=== PATIENT | female | born 1965 | race Two or more races ===

== ENCOUNTER 2017-06-06 17:41 | Inpatient (IN) | payer MEDICARE, MEDICAID ==
[2017-06-06] MEDS ORDERED: Sodium Chloride 0.9% 1,000 ML IV ONE ×2 (18:14→21:23)
--- NOTE | 2017-06-06 18:20 | ED Physician Chart ---
Chief Complaint/HPI - Patient Information Date Seen:: 06/06/17 Time Seen:: 18:00 Chief Complaint:: anemia History of Present Illness:: Blood drawn last night showed a hemoglobin of 6.5. Patient has a history of breast cancer diagnosed in 2011 with metastasis to the brain and bones. She last received radiation therapy 8 days ago. Patient had a right craniotomy 1 months ago to resect cerebral metastasis. Patient complains of diffuse myalgia/ arthralgia at present. Allergies:: Allergies Allergy/AdvReac Type Severity Reaction Status Date / Time No Known Allergies Allergy Verified 06/06/17 18:06 Vitals:: Vital Signs - 8 hr 06/06/17 17:59 Temp 101.1 F HR 132 RR 16 BP 152/94 O2 Sat % 93 Historian:: Patient Review:: Nurse's Note Reviewed Review of Systems - Review of Systems General/Constitutional: No fever, No chills Skin: No skin lesions Head: No headache Eyes: No loss of vision ENT: No earache Neck: No neck pain Cardio Vascular: No chest pain, No palpitations Pulmonary: No SOB GI: No nausea, No vomiting G/U: No dysuria Musculoskeletal: Bone or joint pain Endocrine: No polyuria Psychiatric: No prior psych history Hematopoietic: No bruising Allergic/Immuno: No urticaria Neurological: No syncope Past Medical History - Past Medical History Past Medical History: Other (breast cancer with metastasis) Family History: None Social History: Non Smoker, No Alcohol Surgical History: other (right hip replacement; left knee; left humerus) Psychiatricy History: None Medication: Reviewed Family Medical History - Family Member Mother History Unknown: Yes Physical Exam - Physical Examination Other Gen/Cons comments:: Patient is chronically ill-appearing; she is moaning secondary to pain. Other Head comments:: Large right craniotomy scar Eyes: Lids, conjuctiva normal, PERRL Other Skin comments:: Ecchymosis below both eyes ENMT: External ears, nose nl, Lips, teeth, gums nl, Oropharynx nl, Tonsils nl Neck: No nuchal rigidity Respiratory: Nl effort/Exclusion Cardio Vascular: RRR GI: No tenderness/rebounding/guarding, No organomegaly, No hernia, Normal BS's : No CVA tenderness Other Extremities comments:: 2 out of 4 pretibial pitting edema Neuro/Psych: No focal deficits Misc: No paraspinal tenderness Labs/Radiology/EKG Results - Lab Results Results: Laboratory Results - last 24 hr 06/06/17 06/06/17 06/06/17 18:23 18:23 18:23 WBC 4.9 RBC 2.37 L Hgb 7.4 L* Hct 22.0 L* MCV 92.6 MCH 31.0 MCHC Differential 33.5 RDW 20.3 H Plt Count 198 MPV 7.9 Band Neutrophils % 5 Neutrophils (Manual) 68 Lymphocytes 18 L Monocytes 8 Basophils 1 Nucleated RBCs 1.0 H Platelet Estimate ADEQUATE Anisocytosis 1+ RBC Morph Micro Appear ABNORMAL PT 10.6 INR 1.02 PTT (Actin FS) 24.7 L Sodium 131 L Potassium 3.5 Chloride 102 Carbon Dioxide 23.2 Anion Gap 9.3 BUN 9 Creatinine 0.2 L Est GFR ( Amer) > 60.0 Est GFR (Non-Af Amer) > 60.0 BUN/Creatinine Ratio 45.0 Glucose 101 Calcium 8.5 L Urine Source Urine Color Urine Clarity Urine pH Ur Specific [place] Urine Protein Urine Glucose (UA) Urine Ketones Urine Blood Urine Nitrate Urine Bilirubin Urine Urobilinogen Ur Leukocyte Esterase Urine RBC Urine WBC Ur Epithelial Cells Amorphous Sediment Urine Bacteria Urine Mucus 06/06/17 20:20 WBC RBC Hgb Hct MCV MCH MCHC Differential RDW Plt Count MPV Band Neutrophils % Neutrophils (Manual) Lymphocytes Monocytes Basophils Nucleated RBCs Platelet Estimate Anisocytosis RBC Morph Micro Appear PT INR PTT (Actin FS) Sodium Potassium Chloride Carbon Dioxide Anion Gap BUN Creatinine Est GFR ( Amer) Est GFR (Non-Af Amer) BUN/Creatinine Ratio Glucose Calcium Urine Source [place] Urine Color YELLOW Urine Clarity TURBID H Urine pH 7.0 Ur Specific [place] 1.015 Urine Protein TRACE Urine Glucose (UA) NEGATIVE Urine Ketones NEGATIVE Urine Blood SMALL H Urine Nitrate POSITIVE H Urine Bilirubin NEGATIVE Urine Urobilinogen >=8.0 H Ur Leukocyte Esterase TRACE H Urine RBC 5-10 H Urine WBC 6-10 H Ur Epithelial Cells MANY Amorphous Sediment MANY URATES Urine Bacteria MANY Urine Mucus FEW - Radiology Results Results: Chest x-ray was normal Assessment - Assessment General Assessment: At 2125 patient had no abdominal tenderness ED Septic Shock - . Is Septic Shock (SBP<90, OR Lactate>4 mmol\L) present?: No - <6hrs of presentation: Vital Signs: Vital Signs - 8 hr 06/06/17 17:59 Temp 101.1 F HR 132 RR 16 BP 152/94 O2 Sat % 93 Reassessment (Disposition) - Reassessment Reassessment Condition:: Unchanged - Diagnosis Diagnosis:: Metastatic breast carcinoma; sepsis; status post craniotomy for cerebral metastasis - Patient Disposition Admitted to:: Telemetry Spoke to:: Broderick Luna Admitting Medical Physician:: Broderick Luna Condition at Disposition:: Stable, Unchanged
[2017-06-06] MEDS ORDERED: HYDROmorphone 2 mg/mL 1mL Vial IVP STA (18:29)
[2017-06-06] MEDS ORDERED: HYDROmorphone 2 mg/mL 1mL Vial ONE (18:31)
[2017-06-06 18:39] LABS: MEAN CELL VOLUME 92.6 fl (81-100); MEAN CORPUSCULAR HGB CONC 33.5 pg (28.0-36.0); MEAN PLATELET VOLUME 7.9 fl; PLATELET COUNT 198 Th/cmm (150-400); RED BLOOD COUNT 2.37 Mil/cmm (3.80-5.10); RED CELL DISTRIBUTION WIDTH 20.3 % (11.5-20.0); WHITE BLOOD COUNT 4.9 Th/cmm (4.8-10.8)
[2017-06-06 18:41] LABS: HEMOGLOBIN 7.4 gm/dL (11.7-15.5)
[2017-06-06 18:48] LABS: ANION GAP 9.3 (7.0-16.0); BUN - UREA NITROGEN 9 mg/dL (7-25); CALCIUM SERUM 8.5 mg/dL (8.6-10.3); CARBON DIOXIDE 23.2 mEq/L (21.0-31.0); CHLORIDE 102 mEq/L (98-107); GLUCOSE 101 mg/dL (70-105); INR 1.02 (0.5-1.4); POTASSIUM SERUM 3.5 mEq/L (3.5-5.1); PROTHROMBIN TIME (TEST) 10.6 SECONDS (9.5-11.5); SODIUM SERUM 131 mEq/L (136-145)
[2017-06-06 19:08] LABS: CREATININE - SERUM 0.2 mg/dL (0.6-1.2)
[2017-06-06 19:15] LABS: ANISOCYTOSIS 1+; BAND NEUTROPHILE 5 % (0-10); BASOPHIL 1 % (0-3); NEUTROPHILS 68 % (40-80); PLATELET ESTIMATE ADEQUATE (NORMAL); TOTAL CELLS COUNTED 100
[2017-06-06] MEDS ORDERED: cefTRIAXone 1 GM in Sodium Chloride 0.9% 50 ML IV ONE (19:58)
[2017-06-06 20:36] LABS: URINE COLOR YELLOW
[2017-06-06 20:37] LABS: URINE BILIRUBIN NEGATIVE (NEGATIVE); URINE BLOOD SMALL (NEGATIVE); URINE GLUCOSE (UA) NEGATIVE (NEGATIVE); URINE KETONE NEGATIVE (NEGATIVE); URINE PROTEIN TRACE mg/dL (NEGATIVE); URINE UROBILINOGEN >=8.0 E.U./dL (0.2 - 1.0)
[2017-06-06 20:45] LABS: URINE AMORPHOUS SEDIMENT MANY URATES (NONE SEEN); URINE BACTERIA MANY /hpf (NONE SEEN); URINE EPITHELIAL CELLS MANY /lpf (FEW)
[2017-06-06] MEDS ORDERED: Piperacillin Sodium/Tazobact 3.375 gm Vial IV ONE (21:15)
[2017-06-06] MEDS ORDERED: Morphine Sulfate 2 mg/mL 1mL Syr IVP PRN (21:51)
[2017-06-06] MEDS: HYDROmorphone 2 mg/mL 1mL Vial IVP PRN (22:43)
[2017-06-06] MEDS ORDERED: Morphine Sulfate 2 mg/mL 1mL Syr ONE (23:47)
[2017-06-06] MEDS: D5-0.9%NS 1,000 ML IV SCH (23:50)
[2017-06-07] MEDS: Morphine Sulfate 2 mg/mL 1mL Syr IVP PRN ×5 (00:14→21:08)
[2017-06-07] MEDS: HYDROmorphone 2 mg/mL 1mL Vial IVP PRN ×5 (01:12→23:19)
[2017-06-07 08:11] LABS: MEAN CELL VOLUME 94.5 fl (81-100); MEAN CORPUSCULAR HGB CONC 32.8 pg (28.0-36.0); MEAN PLATELET VOLUME 7.7 fl; PLATELET COUNT 186 Th/cmm (150-400); RED BLOOD COUNT 2.18 Mil/cmm (3.80-5.10); WHITE BLOOD COUNT 4.2 Th/cmm (4.8-10.8)
[2017-06-07 08:15] LABS: ALKALINE PHOSPHATASE 211 U/L (34-104); BILIRUBIN,TOTAL 0.6 mg/dL (0.3-1.0); BUN - UREA NITROGEN 5 mg/dL (7-25); CALCIUM SERUM 8.2 mg/dL (8.6-10.3); CARBON DIOXIDE 20.1 mEq/L (21.0-31.0); CHLORIDE 108 mEq/L (98-107); GLUCOSE 98 mg/dL (70-105); MAGNESIUM 1.8 mg/dL (1.9-2.7); POTASSIUM SERUM 3.1 mEq/L (3.5-5.1); SGOT 179 U/L (13-39); SGPT/ALT 224 U/L (7-52); SODIUM SERUM 136 mEq/L (136-145)
[2017-06-07] MEDS: Pantoprazole 40 mg EC Tab PO SCH (08:39)
[2017-06-07] MEDS: Multivitamin w/ Minerals Tab PO SCH (08:40)
[2017-06-07] MEDS: oxyCODONE 5 mg IR Tab PO SCH ×3 (08:41→22:00)
[2017-06-07] MEDS: Lidocaine 5% Patch TD SCH (08:42)
[2017-06-07 08:49] LABS: HEMATOCRIT 20.6 % (35.0-45.0); HEMOGLOBIN 6.8 gm/dL (11.7-15.5)
[2017-06-07 08:59] LABS: CREATININE - SERUM 0.2 mg/dL (0.6-1.2)
[2017-06-07] MEDS ORDERED: Pneumococcal Vaccine 0.5 mL Vial IM ONE (09:00)
[2017-06-07 09:13] LABS: BAND NEUTROPHILE 3 % (0-10); NEUTROPHILS 71 % (40-80); TOTAL CELLS COUNTED 100
[2017-06-07 09:14] LABS: ANISOCYTOSIS 1+; PLATELET ESTIMATE ADEQUATE (NORMAL)
--- NOTE | 2017-06-07 09:27 | Diagnostic Imaging Report ---
CHEST X-RAY: AP view INDICATION: Fever COMPARISON: None FINDINGS: There are multiple bilateral rib fractures age-indeterminate sella which may be chronic. There is generalized abnormal density of the bones. Suboptimal lung volume are seen with no focal consolidation or pleural effusions. Heart size cannot be well assessed but is probably at the upper limits of normal in size. Postsurgical changes right axillary region are noted. IMPRESSION: Suboptimal lung volumes with no focal consolidation identified. Generalized abnormal density of the bones. Metastatic disease cannot be excluded. Please correlate with patient's clinical findings. If indicated CT or nuclear medicine bone scan may be obtained for further assessment. Multiple bilateral rib fractures some of which may be subacute and some of which may be chronic. Please correlate with clinical findings is normal exams. No evidence of pneumothorax. The final results were administered to the referring team on 06/07/2017.
[2017-06-07 10:19] LABS: TSH 0.64 uIU/ml (0.34-5.60)
[2017-06-07] MEDS ORDERED: Potassium Chloride 20 mEq ER Tab PO ONE (13:18)
[2017-06-07] MEDS ORDERED: Mag Sulfate 2gm/50mL Premix 2 GM/50 ML BAG IV ONE (13:18)
--- NOTE | 2017-06-07 14:56 | Consultation ---
Consult Note - Consult Note Service Date: 06/07/17 Referring Physician: Broderick Luna Consult Note: PHYSICIAN Consultation Note: Date of Admission: 06/06/17 Purpose of Consultation: breast cancer Chief Complaint: History of Present Illness: Patient SUSANNAH BARROW was admitted to [facility] Telemetry with FEVER,UTI, METASTATIC BREAST CA.was diagnosed 2011 and had lest mastectomy and chemotherapy. was found to have metastatic disease to bones and had left hip replacement and right knee and ortho surgery to left elbow. Diagnosed with brain met and had resection and xrt. Admitted for sever weakness and low hgb. Past Medical History: BREAST CA LEFT HIP REPLACEMENT RIGHT KNEE REPLACEMENT Allergies Allergy/AdvReac Type Severity Reaction Status Date / Time No Known Allergies Allergy Verified 06/06/17 18:06 Vital Signs Temp 99.1 F 06/07/17 12:05 Pulse 129 06/07/17 12:05 Resp 19 06/07/17 12:05 BP 135/64 06/07/17 12:05 Pulse Ox 96 06/07/17 12:05 Intake & Output 06/06/17 06/07/17 06/07/17 18:59 06:59 18:59 Intake Total 350 Balance 350 Weight (lbs) 113.58 kg Intake: Intake, IV Amount 350 Piperacillin Sodium/ 100 Tazobact 4.5 gm In Sodium Chloride 0.9% 100 ml @ 100 mls/hr IV Q8HR MARIA ESTHER Rx #:[id number] Vancomycin HCl 1 gm In 250 Sodium Chloride 0.9% 250 ml @ 166.667 mls/hr IV Q24H MARIA ESTHER Rx#:[id number] Other: # Voids 2 # Bowel Movements 2 Stool Characteristics Formed Laboratory Results - last 24 hr 06/07/17 06/07/17 06/07/17 07:15 07:15 07:15 WBC 4.2 L RBC 2.18 L Hgb 6.8 L* Hct 20.6 L* MCV 94.5 MCH 31.0 MCHC Differential 32.8 RDW 20.0 Plt Count 186 MPV 7.7 Band Neutrophils % 3 Neutrophils (Manual) 71 Lymphocytes 17 L Monocytes 9 Platelet Estimate ADEQUATE Anisocytosis 1+ Sodium 136 Potassium 3.1 L Chloride 108 H Carbon Dioxide 20.1 L Anion Gap 11.0 BUN 5 L Creatinine 0.2 L Est GFR ( Amer) > 60.0 Est GFR (Non-Af Amer) > 60.0 BUN/Creatinine Ratio 25.0 Glucose 98 Calcium 8.2 L Magnesium 1.8 L Total Bilirubin 0.6 AST 179 H ALT 224 H Alkaline Phosphatase 211 H Ammonia 78 H B-Natriuretic Peptide Total Protein 5.6 L Albumin 2.8 L Globulin 2.8 Albumin/Globulin Ratio 1.0 TSH 0.64 Blood Type Antibody Screen Crossmatch 06/07/17 06/07/17 07:15 10:25 WBC RBC Hgb Hct MCV MCH MCHC Differential RDW Plt Count MPV Band Neutrophils % Neutrophils (Manual) Lymphocytes Monocytes Platelet Estimate Anisocytosis Sodium Potassium Chloride Carbon Dioxide Anion Gap BUN Creatinine Est GFR ( Amer) Est GFR (Non-Af Amer) BUN/Creatinine Ratio Glucose Calcium Magnesium Total Bilirubin AST ALT Alkaline Phosphatase Ammonia B-Natriuretic Peptide 11.1 Total Protein Albumin Globulin Albumin/Globulin Ratio TSH Blood Type AB POSITIVE Antibody Screen NEGATIVE Crossmatch See Detail Home Medication Medication Instructions Recorded Type Ascorbic Acid [Vitamin C] 500 mg PO DAILY 06/06/17 History Baclofen [Lioresal*] 10 mg PO TID 06/06/17 History Bisacodyl [Dulcolax 5 Mg Ec Tab] 10 mg PO DAILY 06/06/17 History Cholecalciferol (Vit D3) [Vitamin 1,000 iu PO DAILY 06/06/17 History D3] Dexamethasone 2 mg PO BID 06/06/17 History Levetiracetam [Keppra] 1,000 mg PO BID 06/06/17 History Lidocaine 5% Patch [Lidoderm 5% 1 patch TP BID 06/06/17 History Patch] Memantine [Namenda] 5 mg PO DAILY 06/06/17 History Memantine [Namenda] 10 mg PO DAILY 06/06/17 History Multivitamin-Min/Iron/FA/Vit K 1 each PO DAILY 06/06/17 History [Multi-Day Plus Minerals Tablet] Oxycodone HCl [Oxycontin] 20 mg PO TID 06/06/17 History Pantoprazole [Protonix] 40 mg PO QAM 06/06/17 History Zinc Sulfate 220 mg PO DAILY 06/06/17 History Current Medications Generic Name Dose Route Start Last Admin Trade Name Freq PRN Reason Stop Dose Admin Acetaminophen 650 mg 06/06/17 21:51 Tylenol PO 08/05/17 21:50 Q4H PRN Pain Or Fever above 101 Albuterol Sulfate 2.5 mg 06/06/17 21:51 Albuterol 2.5mg/3ml Neb Ud HHN 08/05/17 21:50 Q2HRT PRN Shortness of Breath or Wheeze Ascorbic Acid 500 mg 06/07/17 09:00 06/07/17 08:40 Vitamin C PO 08/06/17 08:59 500 mg DAILY MARIA ESTHER Administration Baclofen 10 mg 06/07/17 09:00 06/07/17 13:54 Lioresal PO 08/06/17 08:59 10 mg TID MARIA ESTHER Administration Bisacodyl 10 mg 06/07/17 09:00 06/07/17 08:39 Dulcolax 5 Mg Ec Tab PO 08/06/17 08:59 10 mg DAILY MARIA ESTHER Administration Cholecalciferol 1,000 iu 06/07/17 09:00 06/07/17 08:39 Vitamin D3 PO 08/06/17 08:59 1,000 iu DAILY MARIA ESTHER Administration Dexamethasone 2 mg 06/07/17 09:00 06/07/17 08:40 Decadron PO 08/06/17 08:59 2 mg BID MARIA ESTHER Administration Enoxaparin Sodium 40 mg 06/08/17 09:00 Lovenox SUBQ 08/07/17 08:59 DAILY MARIA ESTHER Hydromorphone HCl 2 mg 06/06/17 22:36 06/07/17 09:46 Dilaudid IVP 08/05/17 22:35 2 mg Q4HR PRN Administration Pain (Severe) Dextrose/Sodium Chloride 1,000 mls @ 100 mls/hr 06/06/17 22:00 06/06/17 23:50 D5-0.9%Ns IV 08/05/17 21:59 100 mls/hr .Q10H MARIA ESTHER Administration Piperacillin Sod/Tazobactam 100 mls @ 100 mls/hr 06/07/17 05:00 06/07/17 12: 34 Sod 4.5 gm/ Sodium Chloride IV 08/06/17 04:59 100 mls/hr Q8HR MARIA ESTHER Administration Magnesium Sulfate 2 gm in 50 mls @ 25 mls/hr 06/07/17 13:18 Magnesium Sulfate Premix IV 06/07/17 15:17 X1 ONE Vancomycin HCl 1 gm/ Sodium 250 mls @ 165 mls/hr 06/07/17 15:00 Chloride IV 08/06/17 14:59 Q8H MARIA ESTHER Ipratropium [place] 0.5 mg 06/06/17 21:51 Atrovent Neb 0.5mg/2.5ml IH 08/05/17 21:50 Q2HRT PRN Shortness of Breath or Wheeze Levetiracetam 1,000 mg 06/07/17 09:00 06/07/17 08:39 Keppra PO 08/06/17 08:59 1,000 mg BID MARIA ESTHER Administration Lidocaine 1 patch 06/07/17 09:00 06/07/17 08:42 Lidoderm 5% Patch TD 08/06/17 08:59 1 patch DAILY MARIA ESTHER Administration Memantine 10 mg 06/07/17 09:00 06/07/17 08:39 Namenda PO 08/06/17 08:59 10 mg DAILY MARIA ESTHER Administration Memantine 5 mg 06/07/17 17:00 Namenda PO 08/06/17 16:59 1700 MARIA ESTHER Miscellaneous 1 ea 06/07/17 14:04 Vancomycin Iv Per Pharmacy 08/06/17 14:03 PRN PRN DOSING AND MONITORING Morphine Sulfate 2 mg 06/06/17 23:22 06/07/17 11:23 Morphine IVP 08/05/17 21:50 2 mg Q4H PRN Administration Pain (Moderate) Ondansetron HCl 4 mg 06/06/17 21:51 Zofran IV 08/05/17 21:50 Q8H PRN Nausea / Vomiting Oxycodone HCl 20 mg 06/07/17 09:00 06/07/17 13:54 Oxycodone Ir PO 08/06/17 08:59 20 mg TID MARIA ESTHER Administration Pantoprazole Sodium 40 mg 06/07/17 09:00 06/07/17 08:39 Protonix PO 08/06/17 08:59 40 mg QAM MARIA ESTHER Administration Zinc Sulfate 220 mg 06/07/17 09:00 06/07/17 10:15 Zinc Sulfate PO 08/06/17 08:59 220 mg DAILY MARIA ESTHER Administration Zolpidem Tartrate 10 mg 06/06/17 21:51 Ambien PO 08/05/17 21:50 HS PRN Insomnia Review of Systems: A 12 point ROS was reviewed with the pertinent positive and negatives noted in the HPI. Social History Smoking Status Never smoker Drug Use No Alcohol Use No Family Medical History Family Medical History Start: 06/06/17 22: 34 Freq: ONCE Status: Active Document 06/06/17 23:00 RSANDRES (Rec: 06/07/17 03:54 RSANDRES [id number] ) Family Medical History Mother History Unknown Yes Physical Exam: General: CHRONICALLY ILL HEENT: PALLOR Cardio: Respiratory: Abdominal: Genital/Urinary: Extremities: LEFT ARM EDEMA Neurological: Assessment: BED RIDDEN. POOR FUNCTIONAL STATUS METASTATIC BREAST CANCER OBESITY SEVER ANEMIA Plan: DVT PROPH TX PRN ANEMIA W/U PALLIATIVE CARE Signed, Mu Hall [id number]
--- NOTE | 2017-06-07 16:05 | History & Physical ---
ADMIT DATE: 06/07/2017 CHIEF COMPLAINT: Fever and low red blood cell. HISTORY OF PRESENT ILLNESS: This is a 51-year-old unfortunate [place] female with a history of breast cancer with bone mets, status post radiation therapy, which she just finished recently. The patient was diagnosed with UTI, on Levaquin, but has continued to spike. The patient with multiple bone mets with multiple bone surgery. The patient's hemoglobin was 6.8 at the nursing facility. The patient admitted for further management. PAST MEDICAL HISTORY: As mentioned in history present illness. PAST SURGICAL HISTORY: Status post left upper extremity surgeries, status post left hip surgery, craniotomy, right hip surgery. ALLERGIES: No known drug allergies. MEDICATIONS: Vitamin C, baclofen, Dulcolax, dexamethasone, Keppra, lidocaine patch, Namenda, multivitamin, OxyContin, pantoprazole. FAMILY HISTORY: Noncontributory. SOCIAL HISTORY: Nonsmoker, nondrinker, no intravenous drug use. The patient used to work for [employer]. , ____ children. REVIEW OF SYSTEMS: GENERAL: Complains not feeling well. HEENT: No blurred vision or pain. LUNGS: ____ COPD or asthma. HEART: The patient denies hypertension or coronary artery disease. ABDOMEN: The patient with some nausea, no vomiting. No ____ history of reflux. NEUROLOGIC: Status post craniotomy, no seizure, on ____ prophylactic. PHYSICAL EXAMINATION: VITAL SIGNS: Blood pressure 135/64, respirations 19, pulse 96-129, temperature 99.1. GENERAL: Elderly female appears ____. HEENT: Positive craniotomy, facial edema. NECK: Supple. No mass. LUNGS: Equal breath sounds, few rhonchi. HEART: Regular rate and rhythm without appreciable murmurs. ABDOMEN: Soft, ____, globular. Positive bowel sounds. EXTREMITIES: Positive excoriations. NEUROLOGIC: Limited, moving all 4 extremities. Gait not seen. LABORATORY DATA: ____ findings. WBC 4.3, hemoglobin 6.8, platelets 186. Sodium 136, potassium 3.1, BUN ____ and creatinine 0.2. Blood sugar was 98. Magnesium 1.8, AST and ALT 179 and 224, ammonia 78. UA 10 wbc, many bacteria. ASSESSMENT AND PLAN: Urinary tract infection, fever, sepsis, severe anemia, hypokalemia, hypomagnesemia, obesity, elevated liver function tests, low albumin, breast carcinoma with bone mets, possible liver mets. We will continue the patient on IV antibiotic. The patient failed outpatient p.o. antibiotic on Levaquin. The patient currently ____ vancomycin. We will follow the patient's blood culture. We will continue pain medication. We will transfuse with 1 unit and monitor. We will continue with current care. We will refer the patient to oncologist. We will continue to follow. JOB# [id number]
[2017-06-07] MEDS: D5-0.9%NS 1,000 ML IV SCH ×2 (19:04→19:05)
[2017-06-08] MEDS: Morphine Sulfate 2 mg/mL 1mL Syr IVP PRN ×4 (02:20→20:25)
[2017-06-08] MEDS: HYDROmorphone 2 mg/mL 1mL Vial IVP PRN ×4 (06:08→23:05)
[2017-06-08] MEDS: oxyCODONE 5 mg IR Tab PO SCH ×3 (09:00→21:49)
[2017-06-08] MEDS: Multivitamin w/ Minerals Tab PO SCH (09:11)
[2017-06-08] MEDS: Pantoprazole 40 mg EC Tab PO SCH (09:14)
[2017-06-08] MEDS: Enoxaparin 40 mg/0.4 mL 0.4mL Syr SUBQ SCH (09:20)
[2017-06-08 11:49] LABS: ALKALINE PHOSPHATASE 164 U/L (34-104); BILIRUBIN,TOTAL 0.4 mg/dL (0.3-1.0); BUN - UREA NITROGEN 4 mg/dL (7-25); CALCIUM SERUM 7.9 mg/dL (8.6-10.3); CARBON DIOXIDE 19.5 mEq/L (21.0-31.0); CHLORIDE 109 mEq/L (98-107); CREATININE - SERUM 0.2 mg/dL (0.6-1.2); GLUCOSE 134 mg/dL (70-105); MAGNESIUM 1.9 mg/dL (1.9-2.7); POTASSIUM SERUM 3.5 mEq/L (3.5-5.1); SGOT 86 U/L (13-39); SGPT/ALT 121 U/L (7-52); SODIUM SERUM 135 mEq/L (136-145)
[2017-06-08 11:54] LABS: VANCOMYCIN TROUGH 9.3 ug/mL (10-20)
[2017-06-08 12:01] LABS: MEAN CELL VOLUME 90.6 fl (81-100); MEAN CORPUSCULAR HEMOGLOBIN 30.7 pg (27.0-31.0); MEAN CORPUSCULAR HGB CONC 33.9 pg (28.0-36.0); MEAN PLATELET VOLUME 7.2 fl; PLATELET COUNT 172 Th/cmm (150-400); RED BLOOD COUNT 2.46 Mil/cmm (3.80-5.10); RED CELL DISTRIBUTION WIDTH 19.1 % (11.5-20.0)
[2017-06-08 12:09] LABS: HEMOGLOBIN 7.6 gm/dL (11.7-15.5)
[2017-06-08 12:10] LABS: HEMATOCRIT 22.3 % (35.0-45.0)
[2017-06-08 12:11] LABS: FOLIC ACID >20.0 ng/mL (>3.0)
[2017-06-08 12:34] LABS: ANISOCYTOSIS 1+; BAND NEUTROPHILE 4 % (0-10); BASOPHIL 1 % (0-3); NEUTROPHILS 71 % (40-80); PLATELET ESTIMATE ADEQUATE (NORMAL); TOTAL CELLS COUNTED 100
--- NOTE | 2017-06-08 15:22 | Internal Medicine Prog Note ---
Internal Medicine Subjective - Subjective Patient seen and examined:: with staff, chart reviewed Patient is:: awake, verbal, interactive, in bed, talking Patient Complaints of:: congestion, other (feels feverish) Per staff patient has:: no adverse event, poor appetite, poor oral intake, choking, tolerating meds Internal Medicine Objective - Results Result Diagrams: 06/08/17 11:56 06/08/17 11:30 Recent Labs: Laboratory Last Values WBC 4.0 Th/cmm (4.8-10.8) L 06/08/17 11:56 RBC 2.46 Mil/cmm (3.80-5.10) L 06/08/17 11:56 Hgb 7.6 gm/dL (11.7-15.5) L* 06/08/17 11:56 Hct 22.3 % (35.0-45.0) L* 06/08/17 11:56 MCV 90.6 fl (81-100) 06/08/17 11:56 MCH 30.7 pg (27.0-31.0) 06/08/17 11:56 MCHC Differential 33.9 pg (28.0-36.0) 06/08/17 11:56 RDW 19.1 % (11.5-20.0) 06/08/17 11:56 Plt Count 172 Th/cmm (150-400) 06/08/17 11:56 MPV 7.2 fl 06/08/17 11:56 Band Neutrophils % 4 % (0-10) 06/08/17 11:56 Neutrophils (Manual) 71 % (40-80) 06/08/17 11:56 Lymphocytes 18 % (20-50) L 06/08/17 11:56 Monocytes 6 % (2-10) 06/08/17 11:56 Basophils 1 % (0-3) 06/08/17 11:56 Nucleated RBCs 1.0 % (0-0) H 06/06/17 18:23 Platelet Estimate ADEQUATE (NORMAL) 06/08/17 11:56 Anisocytosis 1+ 06/08/17 11:56 RBC Morph Micro Appear ABNORMAL (NORMAL) 06/08/17 11:56 PT 10.6 SECONDS (9.5-11.5) 06/06/17 18:23 INR 1.02 (0.5-1.4) 06/06/17 18:23 PTT (Actin FS) 24.7 SECONDS (26.0-38.0) L 06/06/17 18:23 Sodium 135 mEq/L (136-145) L 06/08/17 11:30 Potassium 3.5 mEq/L (3.5-5.1) 06/08/17 11:30 Chloride 109 mEq/L (98-107) H 06/08/17 11:30 Carbon Dioxide 19.5 mEq/L (21.0-31.0) L 06/08/17 11:30 Anion Gap 10.0 (7.0-16.0) 06/08/17 11:30 BUN 4 mg/dL (7-25) L 06/08/17 11:30 Creatinine 0.2 mg/dL (0.6-1.2) L 06/08/17 11:30 Est GFR ( Amer) > 60.0 ml/min (>90) 06/08/17 11:30 Est GFR (Non-Af Amer) > 60.0 ml/min 06/08/17 11:30 BUN/Creatinine Ratio 20.0 06/08/17 11:30 Glucose 134 mg/dL (70-105) H 06/08/17 11:30 Calcium 7.9 mg/dL (8.6-10.3) L 06/08/17 11:30 Magnesium 1.9 mg/dL (1.9-2.7) 06/08/17 11:30 Total Bilirubin 0.4 mg/dL (0.3-1.0) 06/08/17 11:30 AST 86 U/L (13-39) H 06/08/17 11:30 ALT 121 U/L (7-52) H 06/08/17 11:30 Alkaline Phosphatase 164 U/L (34-104) H 06/08/17 11:30 Ammonia 78 umol/L (16-53) H 06/07/17 07:15 B-Natriuretic Peptide 11.1 pg/mL (5.0-100.0) 06/07/17 07:15 Total Protein 4.8 gm/dL (6.0-8.3) L 06/08/17 11:30 Albumin 2.4 gm/dL (3.7-5.3) L 06/08/17 11:30 Globulin 2.4 gm/dL 06/08/17 11:30 Albumin/Globulin Ratio 1.0 (1.0-1.8) 06/08/17 11:30 Vitamin B12 873 pg/mL (211-946) 06/07/17 07:15 Folic Acid >20.0 ng/mL (>3.0) 06/07/17 07:15 TSH 0.64 uIU/ml (0.34-5.60) 06/07/17 07:15 Urine Source [place] 06/06/17 20:20 Urine Color YELLOW 06/06/17 20:20 Urine Clarity TURBID (CLEAR) H 06/06/17 20:20 Urine pH 7.0 06/06/17 20:20 Ur Specific [place] 1.015 (1.005-1.030) 06/06/17 20:20 Urine Protein TRACE mg/dL (NEGATIVE) 06/06/17 20:20 Urine Glucose (UA) NEGATIVE mg/dL (NEGATIVE) 06/06/17 20:20 Urine Ketones NEGATIVE mg/dL (NEGATIVE) 06/06/17 20:20 Urine Blood SMALL (NEGATIVE) H 06/06/17 20:20 Urine Nitrate POSITIVE (NEGATIVE) H 06/06/17 20:20 Urine Bilirubin NEGATIVE (NEGATIVE) 06/06/17 20:20 Urine Urobilinogen >=8.0 E.U./dL (0.2 - 1.0) H 06/06/17 20:20 Ur Leukocyte Esterase TRACE (NEGATIVE) H 06/06/17 20:20 Urine RBC 5-10 /hpf (0-5) H 06/06/17 20:20 Urine WBC 6-10 /hpf (0-5) H 06/06/17 20:20 Ur Epithelial Cells MANY /lpf (FEW) 06/06/17 20:20 Amorphous Sediment MANY URATES (NONE SEEN) 06/06/17 20:20 Urine Bacteria MANY /hpf (NONE SEEN) 06/06/17 20:20 Urine Mucus FEW /lpf (FEW) 06/06/17 20:20 Vancomycin Trough 9.3 ug/mL (10-20) L 06/08/17 11:30 Blood Type AB POSITIVE 06/07/17 10:25 Antibody Screen NEGATIVE 06/07/17 10:25 Crossmatch See Detail 06/07/17 10:25 - Physical Exam Vitals and I&O: Vital Signs Temp 98.4 F 06/08/17 12:00 Pulse 107 06/08/17 12:00 Resp 20 06/08/17 12:00 BP 123/68 06/08/17 12:00 Pulse Ox 95 06/08/17 12:00 Intake & Output 06/07/17 06/08/17 06/08/17 18:59 06:59 18:59 Intake Total 1250 1410 100 Output Total 500 Balance 1250 910 100 Weight (lbs) 113.307 kg Intake: Intake, IV Amount 1250 450 100 D5-0.9%Ns 1,000 ml @ 100 1000 mls/hr IV .Q10H [facility] Rx#: [id number] Piperacillin Sodium/ 200 100 Tazobact 4.5 gm In Sodium Chloride 0.9% 100 ml @ 100 mls/hr IV Q8HR [facility] Rx #:[id number] Vancomycin HCl 1 gm In 250 250 Sodium Chloride 0.9% 250 ml @ 165 mls/hr IV Q8H [facility] Rx#:[id number] Oral 960 Output: Urine 500 Other: # Bowel Movements 0 Stool Characteristics Formed Formed [place] Active Medications: Current Medications Acetaminophen (Tylenol) 650 mg PO Q4H PRN PRN Reason: Pain Or Fever above 101 Stop: 08/05/17 21:50 Last Admin: 06/07/17 21:07 Dose: 650 mg Albuterol Sulfate (Albuterol 2.5mg/3ml Neb Ud) 2.5 mg HHN Q2HRT PRN PRN Reason: Shortness of Breath or Wheeze Stop: 08/05/17 21:50 Ascorbic Acid (Vitamin C) 500 mg PO DAILY [facility] Stop: 08/06/17 08:59 Last Admin: 06/08/17 09:14 Dose: 500 mg Baclofen (Lioresal) 10 mg PO TID [facility] Stop: 08/06/17 08:59 Last Admin: 06/08/17 09:12 Dose: 10 mg Bisacodyl (Dulcolax 5 Mg Ec Tab) 10 mg PO DAILY [facility] Stop: 08/06/17 08:59 Last Admin: 06/08/17 11:54 Dose: Not Given Cholecalciferol (Vitamin D3) 1,000 iu PO DAILY [facility] Stop: 08/06/17 08:59 Last Admin: 06/08/17 09:14 Dose: 1,000 iu Dexamethasone (Decadron) 2 mg PO BID [facility] Stop: 08/06/17 08:59 Last Admin: 06/08/17 09:11 Dose: 2 mg Enoxaparin Sodium (Lovenox) 40 mg SUBQ DAILY [facility] Stop: 08/07/17 08:59 Last Admin: 06/08/17 09:20 Dose: 40 mg Hydromorphone HCl (Dilaudid) 2 mg IVP Q4HR PRN PRN Reason: Pain (Severe) Stop: 08/05/17 22:35 Last Admin: 06/08/17 12:49 Dose: 2 mg Dextrose/Sodium Chloride (D5-0.9%Ns) 1,000 mls @ 100 mls/hr IV .Q10H [facility] Stop: 08/05/17 21:59 Last Admin: 06/07/17 19:05 Dose: 100 mls/hr Piperacillin Sod/Tazobactam (Sod 4.5 gm/ Sodium Chloride) 100 mls @ 100 mls/hr IV Q8HR [facility] Stop: 08/06/17 04:59 Last Admin: 06/08/17 14:35 Dose: 100 mls/hr Vancomycin HCl 1.25 gm/ Sodium (Chloride) 250 mls @ 165 mls/hr IV Q8H [facility] Stop: 08/07/17 15:59 Ipratropium [place] (Atrovent Neb 0.5mg/2.5ml) 0.5 mg IH Q2HRT PRN PRN Reason: Shortness of Breath or Wheeze Stop: 08/05/17 21:50 Levetiracetam (Keppra) 1,000 mg PO BID [facility] Stop: 08/06/17 08:59 Last Admin: 06/08/17 09:13 Dose: 1,000 mg Lidocaine (Lidoderm 5% Patch) 1 patch TD DAILY [facility] Stop: 08/06/17 08:59 Last Admin: 06/07/17 08:42 Dose: 1 patch Memantine (Namenda) 10 mg PO DAILY [facility] Stop: 08/06/17 08:59 Last Admin: 06/08/17 09:14 Dose: 10 mg Memantine (Namenda) 5 mg PO 1700 [facility] Stop: 08/06/17 16:59 Last Admin: 06/07/17 16:50 Dose: 5 mg Miscellaneous (Vancomycin Iv Per Pharmacy) 1 ea MC PRN PRN PRN Reason: DOSING AND MONITORING Stop: 08/06/17 14:03 Morphine Sulfate (Morphine) 2 mg IVP Q4H PRN PRN Reason: Pain (Moderate) Stop: 08/05/17 21:50 Last Admin: 06/08/17 09:04 Dose: 2 mg Mupirocin (Bactroban Oint) 1 appl NS BID [facility] Stop: 06/13/17 09:01 Ondansetron HCl (Zofran) 4 mg IV Q8H PRN PRN Reason: Nausea / Vomiting Stop: 08/05/17 21:50 Oxycodone HCl (Oxycodone Ir) 20 mg PO TID [facility] Stop: 08/06/17 08:59 Last Admin: 06/08/17 13:03 Dose: 20 mg Pantoprazole Sodium (Protonix) 40 mg PO QAM [facility] Stop: 08/06/17 08:59 Last Admin: 06/08/17 09:14 Dose: 40 mg Zinc Sulfate (Zinc Sulfate) 220 mg PO DAILY [facility] Stop: 08/06/17 08:59 Last Admin: 06/08/17 09:10 Dose: 220 mg Zolpidem Tartrate (Ambien) 10 mg PO HS PRN PRN Reason: Insomnia Stop: 08/05/17 21:50 General: weak, congested, obese, appears older HEENT: NC/AT, PERRLA, EOMI Neck: Supple, No JVD, No thyromegaly Lungs: congested Cardiovascular: RRR, Normal S1, Normal S2, with murmur Abdomen: soft, non-tender, globular, distended Extremities: excoriation, contracture, ulcers stage 2 Neurological: no change, disorganized, unsteady, bedbound Internal Medicine Assmt/Plan - Assessment Assessment: fever uti met breast ca brain and bone mets anemia sp transfusion debilitation bed]bound ch pain syndrome - Plan Plan: cont on iv hydration cont on iv abx will transfuse as needed heme/onc followup dw rn dw family at bedside see orders Nutritional Asmnt/Malnutr-PDOC - Dietary Evaluation Malnutrition Findings (Please click <Entered> for more info): Nutritional Asmnt/Malnutrition Start: 06/07/17 16: 17 Text: Status: Complete Freq: Document 06/07/17 16:19 GSUN (Rec: 06/07/17 16:31 GSUN [id number]) Nutritional Asmnt/Malnutrition Patient General Information Nutritional Screening High Risk Screening Diagnosis ER: metastatic breast carcinoma, sepsis Pertinent Medical Hx/Surgical Hx ER: 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 Pt was pleasant and alert. Pt stated UBW 215lb, questionable EMR weight 250 as pt has equipment and heavy blankets and belongings on bedscale. Pt does appear obese. Pt stated usually good appetite, no changes to taste buds, no difficulties eating. RD worked through menu w pt, extra meal tray provided for caregiver. Pt awaiting blood transfusion at this time, denied nutritional concerns. 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 Problem Problem Icnreased kcal and prot needs related to Etiology hypermetabolic state, skin integrity aeb Signs/Symptoms: sepsis, metastatic cancer, buttock pressure ulcer Malnutrition Related to Morbid Obesity Malnutrition related to morbid obesity BMI> or equal to 40 Query Text:(Any 1 Criteria met) Malnutrition related to morbid obesity Yes Intervention/Recommendation Comments 1. Continue with current diet order. 2. Recommend 1 packet Arginaid . Expected Outcomes/Goals Expected Outcomes/Goals 1. PO intake to meet 100% of estimated nutritional needs.
--- NOTE | 2017-06-08 16:17 | General Progress Note ---
Subjective - Review of Systems Service Date: 06/08/17 Objective - Results Result Diagrams: 06/08/17 11:56 06/08/17 11:30 Recent Labs: Laboratory Last Values WBC 4.0 Th/cmm (4.8-10.8) L 06/08/17 11:56 RBC 2.46 Mil/cmm (3.80-5.10) L 06/08/17 11:56 Hgb 7.6 gm/dL (11.7-15.5) L* 06/08/17 11:56 Hct 22.3 % (35.0-45.0) L* 06/08/17 11:56 MCV 90.6 fl (81-100) 06/08/17 11:56 MCH 30.7 pg (27.0-31.0) 06/08/17 11:56 MCHC Differential 33.9 pg (28.0-36.0) 06/08/17 11:56 RDW 19.1 % (11.5-20.0) 06/08/17 11:56 Plt Count 172 Th/cmm (150-400) 06/08/17 11:56 MPV 7.2 fl 06/08/17 11:56 Band Neutrophils % 4 % (0-10) 06/08/17 11:56 Neutrophils (Manual) 71 % (40-80) 06/08/17 11:56 Lymphocytes 18 % (20-50) L 06/08/17 11:56 Monocytes 6 % (2-10) 06/08/17 11:56 Basophils 1 % (0-3) 06/08/17 11:56 Nucleated RBCs 1.0 % (0-0) H 06/06/17 18:23 Platelet Estimate ADEQUATE (NORMAL) 06/08/17 11:56 Anisocytosis 1+ 06/08/17 11:56 RBC Morph Micro Appear ABNORMAL (NORMAL) 06/08/17 11:56 PT 10.6 SECONDS (9.5-11.5) 06/06/17 18:23 INR 1.02 (0.5-1.4) 06/06/17 18:23 PTT (Actin FS) 24.7 SECONDS (26.0-38.0) L 06/06/17 18:23 Sodium 135 mEq/L (136-145) L 06/08/17 11:30 Potassium 3.5 mEq/L (3.5-5.1) 06/08/17 11:30 Chloride 109 mEq/L (98-107) H 06/08/17 11:30 Carbon Dioxide 19.5 mEq/L (21.0-31.0) L 06/08/17 11:30 Anion Gap 10.0 (7.0-16.0) 06/08/17 11:30 BUN 4 mg/dL (7-25) L 06/08/17 11:30 Creatinine 0.2 mg/dL (0.6-1.2) L 06/08/17 11:30 Est GFR ( Amer) > 60.0 ml/min (>90) 06/08/17 11:30 Est GFR (Non-Af Amer) > 60.0 ml/min 06/08/17 11:30 BUN/Creatinine Ratio 20.0 06/08/17 11:30 Glucose 134 mg/dL (70-105) H 06/08/17 11:30 Calcium 7.9 mg/dL (8.6-10.3) L 06/08/17 11:30 Magnesium 1.9 mg/dL (1.9-2.7) 06/08/17 11:30 Total Bilirubin 0.4 mg/dL (0.3-1.0) 06/08/17 11:30 AST 86 U/L (13-39) H 06/08/17 11:30 ALT 121 U/L (7-52) H 06/08/17 11:30 Alkaline Phosphatase 164 U/L (34-104) H 06/08/17 11:30 Ammonia 78 umol/L (16-53) H 06/07/17 07:15 B-Natriuretic Peptide 11.1 pg/mL (5.0-100.0) 06/07/17 07:15 Total Protein 4.8 gm/dL (6.0-8.3) L 06/08/17 11:30 Albumin 2.4 gm/dL (3.7-5.3) L 06/08/17 11:30 Globulin 2.4 gm/dL 06/08/17 11:30 Albumin/Globulin Ratio 1.0 (1.0-1.8) 06/08/17 11:30 Vitamin B12 873 pg/mL (211-946) 06/07/17 07:15 Folic Acid >20.0 ng/mL (>3.0) 06/07/17 07:15 TSH 0.64 uIU/ml (0.34-5.60) 06/07/17 07:15 Urine Source [place] 06/06/17 20:20 Urine Color YELLOW 06/06/17 20:20 Urine Clarity TURBID (CLEAR) H 06/06/17 20:20 Urine pH 7.0 06/06/17 20:20 Ur Specific [place] 1.015 (1.005-1.030) 06/06/17 20:20 Urine Protein TRACE mg/dL (NEGATIVE) 06/06/17 20:20 Urine Glucose (UA) NEGATIVE mg/dL (NEGATIVE) 06/06/17 20:20 Urine Ketones NEGATIVE mg/dL (NEGATIVE) 06/06/17 20:20 Urine Blood SMALL (NEGATIVE) H 06/06/17 20:20 Urine Nitrate POSITIVE (NEGATIVE) H 06/06/17 20:20 Urine Bilirubin NEGATIVE (NEGATIVE) 06/06/17 20:20 Urine Urobilinogen >=8.0 E.U./dL (0.2 - 1.0) H 06/06/17 20:20 Ur Leukocyte Esterase TRACE (NEGATIVE) H 06/06/17 20:20 Urine RBC 5-10 /hpf (0-5) H 06/06/17 20:20 Urine WBC 6-10 /hpf (0-5) H 06/06/17 20:20 Ur Epithelial Cells MANY /lpf (FEW) 06/06/17 20:20 Amorphous Sediment MANY URATES (NONE SEEN) 06/06/17 20:20 Urine Bacteria MANY /hpf (NONE SEEN) 06/06/17 20:20 Urine Mucus FEW /lpf (FEW) 06/06/17 20:20 Vancomycin Trough 9.3 ug/mL (10-20) L 06/08/17 11:30 Blood Type AB POSITIVE 06/07/17 10:25 Antibody Screen NEGATIVE 06/07/17 10:25 Crossmatch See Detail 06/07/17 10:25 - Physical Exam Vitals and I&O: Vital Signs Temp 98.4 F 06/08/17 12:00 Pulse 107 06/08/17 12:00 Resp 20 06/08/17 12:00 BP 123/68 06/08/17 12:00 Pulse Ox 95 06/08/17 12:00 Intake & Output 06/07/17 06/08/17 06/08/17 18:59 06:59 18:59 Intake Total 1250 1410 100 Output Total 500 Balance 1250 910 100 Weight (lbs) 113.307 kg Intake: Intake, IV Amount 1250 450 100 D5-0.9%Ns 1,000 ml @ 100 1000 mls/hr IV .Q10H [facility] Rx#: [id number] Piperacillin Sodium/ 200 100 Tazobact 4.5 gm In Sodium Chloride 0.9% 100 ml @ 100 mls/hr IV Q8HR [facility] Rx #:[id number] Vancomycin HCl 1 gm In 250 250 Sodium Chloride 0.9% 250 ml @ 165 mls/hr IV Q8H [facility] Rx#:[id number] Oral 960 Output: Urine 500 Other: # Bowel Movements 0 Stool Characteristics Formed Formed [place] Active Medications: Current Medications Acetaminophen (Tylenol) 650 mg PO Q4H PRN PRN Reason: Pain Or Fever above 101 Stop: 08/05/17 21:50 Last Admin: 06/07/17 21:07 Dose: 650 mg Albuterol Sulfate (Albuterol 2.5mg/3ml Neb Ud) 2.5 mg HHN Q2HRT PRN PRN Reason: Shortness of Breath or Wheeze Stop: 08/05/17 21:50 Ascorbic Acid (Vitamin C) 500 mg PO DAILY [facility] Stop: 08/06/17 08:59 Last Admin: 06/08/17 09:14 Dose: 500 mg Baclofen (Lioresal) 10 mg PO TID [facility] Stop: 08/06/17 08:59 Last Admin: 06/08/17 09:12 Dose: 10 mg Bisacodyl (Dulcolax 5 Mg Ec Tab) 10 mg PO DAILY [facility] Stop: 08/06/17 08:59 Last Admin: 06/08/17 11:54 Dose: Not Given Cholecalciferol (Vitamin D3) 1,000 iu PO DAILY [facility] Stop: 08/06/17 08:59 Last Admin: 06/08/17 09:14 Dose: 1,000 iu Dexamethasone (Decadron) 2 mg PO BID [facility] Stop: 08/06/17 08:59 Last Admin: 06/08/17 09:11 Dose: 2 mg Enoxaparin Sodium (Lovenox) 40 mg SUBQ DAILY [facility] Stop: 08/07/17 08:59 Last Admin: 06/08/17 09:20 Dose: 40 mg Hydromorphone HCl (Dilaudid) 2 mg IVP Q4HR PRN PRN Reason: Pain (Severe) Stop: 08/05/17 22:35 Last Admin: 06/08/17 12:49 Dose: 2 mg Dextrose/Sodium Chloride (D5-0.9%Ns) 1,000 mls @ 100 mls/hr IV .Q10H [facility] Stop: 08/05/17 21:59 Last Admin: 06/07/17 19:05 Dose: 100 mls/hr Piperacillin Sod/Tazobactam (Sod 4.5 gm/ Sodium Chloride) 100 mls @ 100 mls/hr IV Q8HR [facility] Stop: 08/06/17 04:59 Last Admin: 06/08/17 14:35 Dose: 100 mls/hr Vancomycin HCl 1.25 gm/ Sodium (Chloride) 250 mls @ 165 mls/hr IV Q8H [facility] Stop: 08/07/17 15:59 Ipratropium [place] (Atrovent Neb 0.5mg/2.5ml) 0.5 mg IH Q2HRT PRN PRN Reason: Shortness of Breath or Wheeze Stop: 08/05/17 21:50 Levetiracetam (Keppra) 1,000 mg PO BID [facility] Stop: 08/06/17 08:59 Last Admin: 06/08/17 09:13 Dose: 1,000 mg Lidocaine (Lidoderm 5% Patch) 1 patch TD DAILY [facility] Stop: 08/06/17 08:59 Last Admin: 06/07/17 08:42 Dose: 1 patch Memantine (Namenda) 10 mg PO DAILY [facility] Stop: 08/06/17 08:59 Last Admin: 06/08/17 09:14 Dose: 10 mg Memantine (Namenda) 5 mg PO 1700 [facility] Stop: 08/06/17 16:59 Last Admin: 06/07/17 16:50 Dose: 5 mg Miscellaneous (Vancomycin Iv Per Pharmacy) 1 ea [facility] PRN PRN PRN Reason: DOSING AND MONITORING Stop: 08/06/17 14:03 Morphine Sulfate (Morphine) 2 mg IVP Q4H PRN PRN Reason: Pain (Moderate) Stop: 08/05/17 21:50 Last Admin: 06/08/17 15:55 Dose: 2 mg Mupirocin (Bactroban Oint) 1 appl NS BID [facility] Stop: 06/13/17 09:01 Ondansetron HCl (Zofran) 4 mg IV Q8H PRN PRN Reason: Nausea / Vomiting Stop: 08/05/17 21:50 Oxycodone HCl (Oxycodone Ir) 20 mg PO TID [facility] Stop: 08/06/17 08:59 Last Admin: 06/08/17 13:03 Dose: 20 mg Pantoprazole Sodium (Protonix) 40 mg PO QAM [facility] Stop: 08/06/17 08:59 Last Admin: 06/08/17 09:14 Dose: 40 mg Zinc Sulfate (Zinc Sulfate) 220 mg PO DAILY [facility] Stop: 08/06/17 08:59 Last Admin: 06/08/17 09:10 Dose: 220 mg Zolpidem Tartrate (Ambien) 10 mg PO HS PRN PRN Reason: Insomnia Stop: 08/05/17 21:50 Neurological: Other (pareplegic) Assessment/Plan - Assessment Assessment: * METASTATIC BREAST CANCER\ * PARAPLEGIC * S/P SPINAL SURGERY FOR DECOMPRESSION * S/P CRANIOTOMY * SEVER ANEMIA OF MALIGNANCY TRANSFUSE ONE MORE UNIT OF BLOOD CONTINUE PROPH LOVENOX D/W DAUGHTER Nutritional Asmnt/Malnutr-PDOC - Dietary Evaluation Malnutrition Findings (Please click <Entered> for more info): Nutritional Asmnt/Malnutrition Start: 06/07/17 16: 17 Text: Status: Complete Freq: Document 06/07/17 16:19 GSUN (Rec: 06/07/17 16:31 GSUN [id number]) Nutritional Asmnt/Malnutrition Patient General Information Nutritional Screening High Risk Screening Diagnosis ER: metastatic breast carcinoma, sepsis Pertinent Medical Hx/Surgical Hx ER: 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 Pt was pleasant and alert. Pt stated UBW 215lb, questionable EMR weight 250 as pt has equipment and heavy blankets and belongings on bedscale. Pt does appear obese. Pt stated usually good appetite, no changes to taste buds, no difficulties eating. RD worked through menu w pt, extra meal tray provided for caregiver. Pt awaiting blood transfusion at this time, denied nutritional concerns. 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 Problem Problem Icnreased kcal and prot needs related to Etiology hypermetabolic state, skin integrity aeb Signs/Symptoms: sepsis, metastatic cancer, buttock pressure ulcer Malnutrition Related to Morbid Obesity Malnutrition related to morbid obesity BMI> or equal to 40 Query Text:(Any 1 Criteria met) Malnutrition related to morbid obesity Yes Intervention/Recommendation Comments 1. Continue with current diet order. 2. Recommend 1 packet Arginaid . Expected Outcomes/Goals Expected Outcomes/Goals 1. PO intake to meet 100% of estimated nutritional needs.
[2017-06-09] MEDS: Albuterol Nebulizer 2.5mg/3mL HHN PRN ×2 (01:32→04:30)
[2017-06-09] MEDS: Ipratropium Neb 0.5 mg/2.5 mL UD IH PRN ×2 (01:32→04:30)
[2017-06-09] MEDS: Morphine Sulfate 2 mg/mL 1mL Syr IVP PRN ×5 (02:23→21:07)
[2017-06-09] MEDS: HYDROmorphone 2 mg/mL 1mL Vial IVP PRN ×5 (05:01→23:24)
[2017-06-09 08:01] LABS: % BASOPHILS 0.6 % (0.0-2.0); % EOSINOPHILS 0.3 % (0.0-5.0); % LYMPHOCYTES 14.7 % (20.0-50.0); % MONOCYTES 5.4 % (2.0-10.0); HEMOGLOBIN 9.1 gm/dL (11.7-15.5); MEAN CELL VOLUME 90.3 fl (81-100); MEAN CORPUSCULAR HEMOGLOBIN 30.5 pg (27.0-31.0); MEAN CORPUSCULAR HGB CONC 33.7 pg (28.0-36.0); MEAN PLATELET VOLUME 6.9 fl; NEUTROPHILE ABSOLUTE 3.7 Th/cmm (1.8-8.0); PLATELET COUNT 164 Th/cmm (150-400); RED BLOOD COUNT 2.99 Mil/cmm (3.80-5.10); WHITE BLOOD COUNT 4.6 Th/cmm (4.8-10.8)
[2017-06-09] MEDS: oxyCODONE 5 mg IR Tab PO SCH ×3 (08:09→22:34)
[2017-06-09] MEDS: Multivitamin w/ Minerals Tab PO SCH (08:09)
[2017-06-09] MEDS: Enoxaparin 40 mg/0.4 mL 0.4mL Syr SUBQ SCH (08:10)
[2017-06-09] MEDS: Pantoprazole 40 mg EC Tab PO SCH (08:12)
[2017-06-09] MEDS: Venelex 60gm Tube TP SCH ×2 (08:15→12:25)
[2017-06-09 08:27] LABS: ALKALINE PHOSPHATASE 194 U/L (34-104); ANION GAP 8.4 (7.0-16.0); BILIRUBIN,TOTAL 0.6 mg/dL (0.3-1.0); BUN - UREA NITROGEN 9 mg/dL (7-25); CALCIUM SERUM 8.2 mg/dL (8.6-10.3); CARBON DIOXIDE 21.7 mEq/L (21.0-31.0); CHLORIDE 107 mEq/L (98-107); CREATININE - SERUM 0.2 mg/dL (0.6-1.2); GLUCOSE 96 mg/dL (70-105); MAGNESIUM 1.8 mg/dL (1.9-2.7); POTASSIUM SERUM 3.1 mEq/L (3.5-5.1); SGOT 81 U/L (13-39); SGPT/ALT 114 U/L (7-52); SODIUM SERUM 134 mEq/L (136-145)
[2017-06-09] MEDS: Lidocaine 5% Patch TD SCH ×2 (12:25→12:28)
[2017-06-09] MEDS ORDERED: Potassium Chloride 20 mEq ER Tab PO ONE (16:06)
[2017-06-09] MEDS ORDERED: Mag Sulfate 2gm/50mL Premix 2 GM/50 ML BAG IV ONE (16:06)
[2017-06-09] MEDS: D5-0.9%NS 1,000 ML IV SCH (17:07)
--- NOTE | 2017-06-10 00:47 | Admit Criteria Form ---
Admit Criteria Forms - Admit Criteria Diagnosis: PAIN MANAGEMENT GR Clinical Indications for Admission to Inpatient Care (Place 'X' for any and all applicable criteria): Hospital admission is needed for appropriate care of the patient because of 1 or more of the following are present (1)(2)(3)(4)(5): [X ]I. Severe pain requiring acute inpatient management as indicated by 1 or more of the following (2)(5)(10): [X ]a) Continuous or frequent (eg, every 2 to 4 hours) parenteral analgesics required [A] [ ]b) Necessity (ie, alternative approaches not effective) for analgesic regimen that can only be performed or initiated in inpatient setting [ ]II. Pain causing debilitation to the point of inability to function or be supported at any other level of care [ ]III. Severe side effects from pain medications as indicated by ANY ONE of the following (12)(13)(14)(15): [ ]a) Uncontrollable seizures [ ]b) Cardiac arrhythmias of immediate concern [ ]c) Dehydration that is severe or persistent [ ]d) Vomiting that is severe or persistent [ ]e) Altered mental status that is severe or persistent [ ]f) Obstipation with inadequate GI function to maintain nutrition The original [employer] content created by [employer] has been revised. The portions of the content which have been revised are identified through the use of italic text or in bold, and [facility] has neither reviewed nor approved the modified material. All other unmodified content is copyright [employer]. Please see references footnoted in the original [facility] 2016 Admit Criteria Met?: Yes
[2017-06-10] MEDS: HYDROmorphone 2 mg/mL 1mL Vial IVP PRN ×5 (03:32→20:11)
[2017-06-10 05:28] LABS: % BASOPHILS 0.4 % (0.0-2.0); % EOSINOPHILS 0.2 % (0.0-5.0); % LYMPHOCYTES 16.3 % (20.0-50.0); % MONOCYTES 6.6 % (2.0-10.0); % NEUTROPHILS 76.5 % (40.0-80.0); HEMATOCRIT 25.4 % (35.0-45.0); HEMOGLOBIN 8.8 gm/dL (11.7-15.5); MEAN CELL VOLUME 88.9 fl (81-100); MEAN CORPUSCULAR HEMOGLOBIN 30.8 pg (27.0-31.0); MEAN CORPUSCULAR HGB CONC 34.7 pg (28.0-36.0); MEAN PLATELET VOLUME 7.2 fl; NEUTROPHILE ABSOLUTE 3.5 Th/cmm (1.8-8.0); PLATELET COUNT 189 Th/cmm (150-400); RED BLOOD COUNT 2.86 Mil/cmm (3.80-5.10); RED CELL DISTRIBUTION WIDTH 18.7 % (11.5-20.0); WHITE BLOOD COUNT 4.5 Th/cmm (4.8-10.8)
[2017-06-10 05:39] LABS: ALKALINE PHOSPHATASE 195 U/L (34-104); ANION GAP 10.7 (7.0-16.0); BILIRUBIN,TOTAL 0.5 mg/dL (0.3-1.0); BUN - UREA NITROGEN 7 mg/dL (7-25); CARBON DIOXIDE 24.4 mEq/L (21.0-31.0); CHLORIDE 108 mEq/L (98-107); CREATININE - SERUM 0.2 mg/dL (0.6-1.2); GLUCOSE 94 mg/dL (70-105); POTASSIUM SERUM 3.1 mEq/L (3.5-5.1); SGOT 67 U/L (13-39); SGPT/ALT 86 U/L (7-52); SODIUM SERUM 140 mEq/L (136-145)
[2017-06-10] MEDS: Morphine Sulfate 2 mg/mL 1mL Syr IVP PRN ×6 (06:16→23:13)
[2017-06-10] MEDS: Ipratropium Neb 0.5 mg/2.5 mL UD IH PRN (07:50)
[2017-06-10] MEDS: Albuterol Nebulizer 2.5mg/3mL HHN PRN (07:50)
[2017-06-10] MEDS: Pantoprazole 40 mg EC Tab PO SCH (09:49)
[2017-06-10] MEDS: oxyCODONE 5 mg IR Tab PO SCH ×3 (09:49→22:21)
[2017-06-10] MEDS: Multivitamin w/ Minerals Tab PO SCH (09:49)
[2017-06-10] MEDS: Enoxaparin 40 mg/0.4 mL 0.4mL Syr SUBQ SCH (09:50)
[2017-06-10] MEDS: Lidocaine 5% Patch TD SCH (09:57)
[2017-06-10] MEDS: Venelex 60gm Tube TP SCH (10:20)
--- NOTE | 2017-06-10 12:06 | Internal Medicine Prog Note ---
Internal Medicine Subjective - Subjective Service Date: 06/10/17 Patient is:: awake, verbal, interactive, in bed, talking Patient Complaints of:: congestion, cough (with yellowish phlegm), other (feels feverish) Per staff patient has:: no adverse event, poor appetite, poor oral intake, choking, tolerating meds Internal Medicine Objective - Results Result Diagrams: 06/10/17 04:55 06/10/17 04:55 Recent Labs: Laboratory Last Values WBC 4.5 Th/cmm (4.8-10.8) L 06/10/17 04:55 RBC 2.86 Mil/cmm (3.80-5.10) L 06/10/17 04:55 Hgb 8.8 gm/dL (11.7-15.5) L 06/10/17 04:55 Hct 25.4 % (35.0-45.0) L 06/10/17 04:55 MCV 88.9 fl (81-100) 06/10/17 04:55 MCH 30.8 pg (27.0-31.0) 06/10/17 04:55 MCHC Differential 34.7 pg (28.0-36.0) 06/10/17 04:55 RDW 18.7 % (11.5-20.0) 06/10/17 04:55 Plt Count 189 Th/cmm (150-400) 06/10/17 04:55 MPV 7.2 fl 06/10/17 04:55 Neutrophils % 76.5 % (40.0-80.0) 06/10/17 04:55 Band Neutrophils % 4 % (0-10) 06/08/17 11:56 Lymphocytes % 16.3 % (20.0-50.0) L 06/10/17 04:55 Monocytes % 6.6 % (2.0-10.0) 06/10/17 04:55 Eosinophils % 0.2 % (0.0-5.0) 06/10/17 04:55 Basophils % 0.4 % (0.0-2.0) 06/10/17 04:55 Neutrophils (Manual) 71 % (40-80) 06/08/17 11:56 Lymphocytes 18 % (20-50) L 06/08/17 11:56 Monocytes 6 % (2-10) 06/08/17 11:56 Basophils 1 % (0-3) 06/08/17 11:56 Nucleated RBCs 1.0 % (0-0) H 06/06/17 18:23 Platelet Estimate ADEQUATE (NORMAL) 06/08/17 11:56 Anisocytosis 1+ 06/08/17 11:56 RBC Morph Micro Appear ABNORMAL (NORMAL) 06/08/17 11:56 PT 10.6 SECONDS (9.5-11.5) 06/06/17 18:23 INR 1.02 (0.5-1.4) 06/06/17 18:23 PTT (Actin FS) 24.7 SECONDS (26.0-38.0) L 06/06/17 18:23 Sodium 140 mEq/L (136-145) 06/10/17 04:55 Potassium 3.1 mEq/L (3.5-5.1) L 06/10/17 04:55 Chloride 108 mEq/L (98-107) H 06/10/17 04:55 Carbon Dioxide 24.4 mEq/L (21.0-31.0) 06/10/17 04:55 Anion Gap 10.7 (7.0-16.0) 06/10/17 04:55 BUN 7 mg/dL (7-25) 06/10/17 04:55 Creatinine 0.2 mg/dL (0.6-1.2) L 06/10/17 04:55 Est GFR ( Amer) > 60.0 ml/min (>90) 06/10/17 04:55 Est GFR (Non-Af Amer) > 60.0 ml/min 06/10/17 04:55 BUN/Creatinine Ratio 35.0 06/10/17 04:55 Glucose 94 mg/dL (70-105) 06/10/17 04:55 Calcium 8.0 mg/dL (8.6-10.3) L 06/10/17 04:55 Magnesium 2.0 mg/dL (1.9-2.7) 06/10/17 04:55 Total Bilirubin 0.5 mg/dL (0.3-1.0) 06/10/17 04:55 AST 67 U/L (13-39) H 06/10/17 04:55 ALT 86 U/L (7-52) H 06/10/17 04:55 Alkaline Phosphatase 195 U/L (34-104) H 06/10/17 04:55 Ammonia 78 umol/L (16-53) H 06/07/17 07:15 B-Natriuretic Peptide 11.1 pg/mL (5.0-100.0) 06/07/17 07:15 Total Protein 5.2 gm/dL (6.0-8.3) L 06/10/17 04:55 Albumin 2.6 gm/dL (3.7-5.3) L 06/10/17 04:55 Globulin 2.6 gm/dL 06/10/17 04:55 Albumin/Globulin Ratio 1.0 (1.0-1.8) 06/10/17 04:55 Vitamin B12 873 pg/mL (211-946) 06/07/17 07:15 Folic Acid >20.0 ng/mL (>3.0) 06/07/17 07:15 TSH 0.64 uIU/ml (0.34-5.60) 06/07/17 07:15 Urine Source [place] 06/06/17 20:20 Urine Color YELLOW 06/06/17 20:20 Urine Clarity TURBID (CLEAR) H 06/06/17 20:20 Urine pH 7.0 06/06/17 20:20 Ur Specific [place] 1.015 (1.005-1.030) 06/06/17 20:20 Urine Protein TRACE mg/dL (NEGATIVE) 06/06/17 20:20 Urine Glucose (UA) NEGATIVE mg/dL (NEGATIVE) 06/06/17 20:20 Urine Ketones NEGATIVE mg/dL (NEGATIVE) 06/06/17 20:20 Urine Blood SMALL (NEGATIVE) H 06/06/17 20:20 Urine Nitrate POSITIVE (NEGATIVE) H 06/06/17 20:20 Urine Bilirubin NEGATIVE (NEGATIVE) 06/06/17 20:20 Urine Urobilinogen >=8.0 E.U./dL (0.2 - 1.0) H 06/06/17 20:20 Ur Leukocyte Esterase TRACE (NEGATIVE) H 06/06/17 20:20 Urine RBC 5-10 /hpf (0-5) H 06/06/17 20:20 Urine WBC 6-10 /hpf (0-5) H 06/06/17 20:20 Ur Epithelial Cells MANY /lpf (FEW) 06/06/17 20:20 Amorphous Sediment MANY URATES (NONE SEEN) 06/06/17 20:20 Urine Bacteria MANY /hpf (NONE SEEN) 06/06/17 20:20 Urine Mucus FEW /lpf (FEW) 06/06/17 20:20 Vancomycin Trough 18.1 ug/mL (10-20) 06/09/17 07:53 Blood Type AB POSITIVE 06/07/17 10:25 Antibody Screen NEGATIVE 06/07/17 10:25 Crossmatch See Detail 06/07/17 10:25 - Physical Exam Vitals and I&O: Vital Signs Temp 98.7 F 06/10/17 04:00 Pulse 115 06/10/17 07:56 Resp 20 06/10/17 07:57 BP 138/73 06/10/17 04:00 Pulse Ox 97 06/10/17 07:56 Intake & Output 06/09/17 06/10/17 06/10/17 18:59 06:59 18:59 Intake Total 1200 750 Output Total 1850 1400 Balance -650 -650 Weight (lbs) 258 lb 256 lb Intake: Intake, IV Amount 600 450 Piperacillin Sodium/ 100 200 Tazobact 4.5 gm In Sodium Chloride 0.9% 100 ml @ 100 mls/hr IV Q8HR [facility] Rx #:[id number] Vancomycin HCl 1.25 gm In 500 250 Sodium Chloride 0.9% 250 ml @ 165 mls/hr IV Q8H [facility] Rx#:[id number] Oral 600 300 Output: Urine 1850 1400 Other: Stool Characteristics Soft Active Medications: Current Medications Acetaminophen (Tylenol) 650 mg PO Q4H PRN PRN Reason: Pain Or Fever above 101 Stop: 08/05/17 21:50 Last Admin: 06/07/17 21:07 Dose: 650 mg Albuterol Sulfate (Albuterol 2.5mg/3ml Neb Ud) 2.5 mg HHN Q2HRT PRN PRN Reason: Shortness of Breath or Wheeze Stop: 08/05/17 21:50 Last Admin: 06/10/17 07:50 Dose: 2.5 mg Ascorbic Acid (Vitamin C) 500 mg PO DAILY [facility] Stop: 08/06/17 08:59 Last Admin: 06/10/17 09:49 Dose: 500 mg Baclofen (Lioresal) 10 mg PO TID [facility] Stop: 08/06/17 08:59 Last Admin: 06/10/17 09:49 Dose: 10 mg Bisacodyl (Dulcolax 5 Mg Ec Tab) 10 mg PO DAILY [facility] Stop: 08/06/17 08:59 Last Admin: 06/10/17 09:49 Dose: 10 mg Cholecalciferol (Vitamin D3) 1,000 iu PO DAILY [facility] Stop: 08/06/17 08:59 Last Admin: 06/10/17 09:49 Dose: 1,000 iu Dexamethasone (Decadron) 2 mg PO BID [facility] Stop: 08/06/17 08:59 Last Admin: 06/10/17 09:50 Dose: 2 mg Enoxaparin Sodium (Lovenox) 40 mg SUBQ DAILY [facility] Stop: 08/07/17 08:59 Last Admin: 06/10/17 09:50 Dose: 40 mg Hydromorphone HCl (Dilaudid) 2 mg IVP Q4HR PRN PRN Reason: Pain (Severe) Stop: 08/05/17 22:35 Last Admin: 06/10/17 11:54 Dose: 2 mg Piperacillin Sod/Tazobactam (Sod 4.5 gm/ Sodium Chloride) 100 mls @ 100 mls/hr IV Q8HR [facility] Stop: 08/06/17 04:59 Last Infusion: 06/10/17 05:39 Dose: Infused Vancomycin HCl 1.25 gm/ Sodium (Chloride) 250 mls @ 165 mls/hr IV Q8H [facility] Stop: 08/07/17 15:59 Last Admin: 06/10/17 10:19 Dose: 165 mls/hr Dextrose/Sodium Chloride (D5-0.9%Ns) 1,000 mls @ 75 mls/hr IV .[id number] [facility] Stop: 08/05/17 21:59 Last Admin: 06/09/17 17:07 Dose: 75 mls/hr Ipratropium [place] (Atrovent Neb 0.5mg/2.5ml) 0.5 mg IH Q2HRT PRN PRN Reason: Shortness of Breath or Wheeze Stop: 08/05/17 21:50 Last Admin: 06/10/17 07:50 Dose: 0.5 mg Levetiracetam (Keppra) 1,000 mg PO BID [facility] Stop: 08/06/17 08:59 Last Admin: 06/10/17 09:49 Dose: 1,000 mg Lidocaine (Lidoderm 5% Patch) 1 patch TD DAILY [facility] Stop: 08/06/17 08:59 Last Admin: 06/10/17 09:57 Dose: 1 patch Memantine (Namenda) 10 mg PO DAILY [facility] Stop: 08/06/17 08:59 Last Admin: 06/10/17 09:49 Dose: 10 mg Memantine (Namenda) 5 mg PO 1700 [facility] Stop: 08/06/17 16:59 Last Admin: 06/09/17 17:54 Dose: 5 mg Miscellaneous (Vancomycin Iv Per Pharmacy) 1 ea MC PRN PRN PRN Reason: DOSING AND MONITORING Stop: 08/06/17 14:03 Morphine Sulfate (Morphine) 2 mg IVP Q4H PRN PRN Reason: Pain (Moderate) Stop: 08/05/17 21:50 Last Admin: 06/10/17 10:28 Dose: 2 mg Mupirocin (Bactroban Oint) 1 appl NS BID [facility] Stop: 06/13/17 09:01 Last Admin: 06/10/17 09:59 Dose: 1 appl Ondansetron HCl (Zofran) 4 mg IV Q8H PRN PRN Reason: Nausea / Vomiting Stop: 08/05/17 21:50 Oxycodone HCl (Oxycodone Ir) 20 mg PO TID [facility] Stop: 08/06/17 08:59 Last Admin: 06/10/17 09:49 Dose: 20 mg Pantoprazole Sodium (Protonix) 40 mg PO QAM [facility] Stop: 08/06/17 08:59 Last Admin: 06/10/17 09:49 Dose: 40 mg Zinc Sulfate (Zinc Sulfate) 220 mg PO DAILY [facility] Stop: 08/06/17 08:59 Last Admin: 06/10/17 09:49 Dose: 220 mg Zolpidem Tartrate (Ambien) 10 mg PO HS PRN PRN Reason: Insomnia Stop: 08/05/17 21:50 General: weak, congested, obese, appears older HEENT: NC/AT, PERRLA, EOMI Neck: Supple, No JVD, No thyromegaly Lungs: congested Cardiovascular: RRR, Normal S1, Normal S2, with murmur Abdomen: soft, non-tender, globular, distended Extremities: excoriation, contracture, ulcers stage 2 Neurological: no change, disorganized, unsteady, bedbound - Procedures Procedures: Procedures Procedure Code Date BLOOD TRANSFUSION SERVICE 31297 06/06/17 TRANSFUSE NONAUT RED BLOOD CELLS IN PERIPH VEIN, PERC 47860L1 06/06/17 Internal Medicine Assmt/Plan - Assessment Assessment: fever uti met breast ca brain and bone mets anemia sp transfusion debilitation bedbound ch pain syndrome - Plan Plan: pain mgmt monitor for fever continue ivabx monitor h/h am labs Nutritional Asmnt/Malnutr-PDOC - Dietary Evaluation Malnutrition Findings (Please click <Entered> for more info): Nutritional Asmnt/Malnutrition Start: 06/07/17 16: 17 Text: Status: Complete Freq: Document 06/07/17 16:19 GSUN (Rec: 06/07/17 16:31 GSUN [id number]) Nutritional Asmnt/Malnutrition Patient General Information Nutritional Screening High Risk Screening Diagnosis ER: metastatic breast carcinoma, sepsis Pertinent Medical Hx/Surgical Hx ER: 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 Pt was pleasant and alert. Pt stated UBW 215lb, questionable EMR weight 250 as pt has equipment and heavy blankets and belongings on bedscale. Pt does appear obese. Pt stated usually good appetite, no changes to taste buds, no difficulties eating. RD worked through menu w pt, extra meal tray provided for caregiver. Pt awaiting blood transfusion at this time, denied nutritional concerns. 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 Problem Problem Icnreased kcal and prot needs related to Etiology hypermetabolic state, skin integrity aeb Signs/Symptoms: sepsis, metastatic cancer, buttock pressure ulcer Malnutrition Related to Morbid Obesity Malnutrition related to morbid obesity BMI> or equal to 40 Query Text:(Any 1 Criteria met) Malnutrition related to morbid obesity Yes Intervention/Recommendation Comments 1. Continue with current diet order. 2. Recommend 1 packet Arginaid . Expected Outcomes/Goals Expected Outcomes/Goals 1. PO intake to meet 100% of estimated nutritional needs.
[2017-06-10] MEDS ORDERED: Potassium Chloride 20 mEq ER Tab PO ONE (13:01)
[2017-06-10] MEDS: D5-0.9%NS 1,000 ML IV SCH (23:22)
[2017-06-11] MEDS: HYDROmorphone 2 mg/mL 1mL Vial IVP PRN ×3 (00:19→08:06)
[2017-06-11 05:11] LABS: FERRITIN 2330 ng/mL (15-150); IRON SATURATION 43 % (15-55); TIBC (LCI) 161 ug/dL (250-450); UIBC 91 ug/dL (131-425)
[2017-06-11] MEDS: Morphine Sulfate 2 mg/mL 1mL Syr IVP PRN ×2 (06:14→10:03)
[2017-06-11 06:54] LABS: % BASOPHILS 0.5 % (0.0-2.0); % EOSINOPHILS 0.4 % (0.0-5.0); % LYMPHOCYTES 17.3 % (20.0-50.0); % MONOCYTES 4.8 % (2.0-10.0); HEMATOCRIT 26.5 % (35.0-45.0); MEAN CELL VOLUME 90.6 fl (81-100); MEAN CORPUSCULAR HEMOGLOBIN 30.7 pg (27.0-31.0); MEAN CORPUSCULAR HGB CONC 33.9 pg (28.0-36.0); MEAN PLATELET VOLUME 7.5 fl; NEUTROPHILE ABSOLUTE 4.2 Th/cmm (1.8-8.0); PLATELET COUNT 168 Th/cmm (150-400); RED BLOOD COUNT 2.93 Mil/cmm (3.80-5.10); RED CELL DISTRIBUTION WIDTH 19.5 % (11.5-20.0); WHITE BLOOD COUNT 5.4 Th/cmm (4.8-10.8)
[2017-06-11 07:10] LABS: BUN - UREA NITROGEN 6 mg/dL (7-25); CARBON DIOXIDE 20.5 mEq/L (21.0-31.0); CHLORIDE 107 mEq/L (98-107); GLUCOSE 90 mg/dL (70-105); POTASSIUM SERUM 3.5 mEq/L (3.5-5.1); SODIUM SERUM 137 mEq/L (136-145)
[2017-06-11 07:26] LABS: CREATININE - SERUM 0.2 mg/dL (0.6-1.2)
[2017-06-11] MEDS: Lidocaine 5% Patch TD SCH (09:02)
[2017-06-11] MEDS: Venelex 60gm Tube TP SCH (09:02)
[2017-06-11] MEDS: Multivitamin w/ Minerals Tab PO SCH (09:04)
[2017-06-11] MEDS: Enoxaparin 40 mg/0.4 mL 0.4mL Syr SUBQ SCH (09:06)
[2017-06-11] MEDS: Pantoprazole 40 mg EC Tab PO SCH (10:07)
--- NOTE | 2017-06-11 11:30 | Discharge Summary ---
General Discharge Summary - Discharge Summary Date of Admission: 06/11/17 ([facility] [id number]) Laboratory Findings: Laboratory Tests 06/07/17 06/07/17 06/07/17 07:15 07:15 07:15 WBC 4.2 L RBC 2.18 L Hgb 6.8 L* Hct 20.6 L* MCV 94.5 MCH 31.0 MCHC Differential 32.8 RDW 20.0 Plt Count 186 MPV 7.7 Neutrophils % Band Neutrophils % 3 Lymphocytes % Monocytes % Eosinophils % Basophils % Neutrophils (Manual) 71 Lymphocytes 17 L Monocytes 9 Basophils Platelet Estimate ADEQUATE Anisocytosis 1+ RBC Morph Micro Appear Sodium 136 Potassium 3.1 L Chloride 108 H Carbon Dioxide 20.1 L Anion Gap 11.0 BUN 5 L Creatinine 0.2 L Est GFR ( Amer) > 60.0 Est GFR (Non-Af Amer) > 60.0 BUN/Creatinine Ratio 25.0 Glucose 98 Calcium 8.2 L Magnesium 1.8 L Iron TIBC Iron Saturation Unsaturated IBC Ferritin Total Bilirubin 0.6 AST 179 H ALT 224 H Alkaline Phosphatase 211 H Ammonia 78 H B-Natriuretic Peptide Total Protein 5.6 L Albumin 2.8 L Globulin 2.8 Albumin/Globulin Ratio 1.0 Vitamin B12 Folic Acid TSH 0.64 Vancomycin Trough Blood Type Antibody Screen Crossmatch 06/07/17 06/07/17 06/07/17 07:15 07:15 10:25 WBC RBC Hgb Hct MCV MCH MCHC Differential RDW Plt Count MPV Neutrophils % Band Neutrophils % Lymphocytes % Monocytes % Eosinophils % Basophils % Neutrophils (Manual) Lymphocytes Monocytes Basophils Platelet Estimate Anisocytosis RBC Morph Micro Appear Sodium Potassium Chloride Carbon Dioxide Anion Gap BUN Creatinine Est GFR ( Amer) Est GFR (Non-Af Amer) BUN/Creatinine Ratio Glucose Calcium Magnesium Iron TIBC Iron Saturation Unsaturated IBC Ferritin Total Bilirubin AST ALT Alkaline Phosphatase Ammonia B-Natriuretic Peptide 11.1 Total Protein Albumin Globulin Albumin/Globulin Ratio Vitamin B12 873 Folic Acid >20.0 TSH Vancomycin Trough Blood Type AB POSITIVE Antibody Screen NEGATIVE Crossmatch See Detail 06/08/17 06/08/17 06/08/17 07:13 11:30 11:56 WBC 4.0 L RBC 2.46 L Hgb 7.6 L* Hct 22.3 L* MCV 90.6 MCH 30.7 MCHC Differential 33.9 RDW 19.1 Plt Count 172 MPV 7.2 Neutrophils % Band Neutrophils % 4 Lymphocytes % Monocytes % Eosinophils % Basophils % Neutrophils (Manual) 71 Lymphocytes 18 L Monocytes 6 Basophils 1 Platelet Estimate ADEQUATE Anisocytosis 1+ RBC Morph Micro Appear ABNORMAL Sodium 135 L Potassium 3.5 Chloride 109 H Carbon Dioxide 19.5 L Anion Gap 10.0 BUN 4 L Creatinine 0.2 L Est GFR ( Amer) > 60.0 Est GFR (Non-Af Amer) > 60.0 BUN/Creatinine Ratio 20.0 Glucose 134 H Calcium 7.9 L Magnesium 1.9 Iron 70 TIBC 161 L Iron Saturation 43 Unsaturated IBC 91 L Ferritin 2330 H Total Bilirubin 0.4 AST 86 H ALT 121 H Alkaline Phosphatase 164 H Ammonia B-Natriuretic Peptide Total Protein 4.8 L Albumin 2.4 L Globulin 2.4 Albumin/Globulin Ratio 1.0 Vitamin B12 Folic Acid TSH Vancomycin Trough 9.3 L Blood Type Antibody Screen Crossmatch 06/09/17 06/09/17 06/09/17 07:53 07:53 07:53 WBC 4.6 L RBC 2.99 L Hgb 9.1 L Hct 27.0 L D MCV 90.3 MCH 30.5 MCHC Differential 33.7 RDW 19.0 Plt Count 164 MPV 6.9 Neutrophils % 79.0 Band Neutrophils % Lymphocytes % 14.7 L Monocytes % 5.4 Eosinophils % 0.3 Basophils % 0.6 Neutrophils (Manual) Lymphocytes Monocytes Basophils Platelet Estimate Anisocytosis RBC Morph Micro Appear Sodium 134 L Potassium 3.1 L Chloride 107 Carbon Dioxide 21.7 Anion Gap 8.4 BUN 9 Creatinine 0.2 L Est GFR ( Amer) > 60.0 Est GFR (Non-Af Amer) > 60.0 BUN/Creatinine Ratio 45.0 Glucose 96 Calcium 8.2 L Magnesium 1.8 L Iron TIBC Iron Saturation Unsaturated IBC Ferritin Total Bilirubin 0.6 AST 81 H ALT 114 H Alkaline Phosphatase 194 H Ammonia B-Natriuretic Peptide Total Protein 5.4 L Albumin 2.7 L Globulin 2.7 Albumin/Globulin Ratio 1.0 Vitamin B12 Folic Acid TSH Vancomycin Trough 18.1 Blood Type Antibody Screen Crossmatch 06/10/17 06/10/17 06/11/17 04:55 04:55 06:06 WBC 4.5 L 5.4 RBC 2.86 L 2.93 L Hgb 8.8 L 9.0 L Hct 25.4 L 26.5 L MCV 88.9 90.6 MCH 30.8 30.7 MCHC Differential 34.7 33.9 RDW 18.7 19.5 Plt Count 189 168 MPV 7.2 7.5 Neutrophils % 76.5 77.0 Band Neutrophils % Lymphocytes % 16.3 L 17.3 L Monocytes % 6.6 4.8 Eosinophils % 0.2 0.4 Basophils % 0.4 0.5 Neutrophils (Manual) Lymphocytes Monocytes Basophils Platelet Estimate Anisocytosis RBC Morph Micro Appear Sodium 140 Potassium 3.1 L Chloride 108 H Carbon Dioxide 24.4 Anion Gap 10.7 BUN 7 Creatinine 0.2 L Est GFR ( Amer) > 60.0 Est GFR (Non-Af Amer) > 60.0 BUN/Creatinine Ratio 35.0 Glucose 94 Calcium 8.0 L Magnesium 2.0 Iron TIBC Iron Saturation Unsaturated IBC Ferritin Total Bilirubin 0.5 AST 67 H ALT 86 H Alkaline Phosphatase 195 H Ammonia B-Natriuretic Peptide Total Protein 5.2 L Albumin 2.6 L Globulin 2.6 Albumin/Globulin Ratio 1.0 Vitamin B12 Folic Acid TSH Vancomycin Trough Blood Type Antibody Screen Crossmatch 06/11/17 06:06 WBC RBC Hgb Hct MCV MCH MCHC Differential RDW Plt Count MPV Neutrophils % Band Neutrophils % Lymphocytes % Monocytes % Eosinophils % Basophils % Neutrophils (Manual) Lymphocytes Monocytes Basophils Platelet Estimate Anisocytosis RBC Morph Micro Appear Sodium 137 Potassium 3.5 Chloride 107 Carbon Dioxide 20.5 L Anion Gap 13.0 BUN 6 L Creatinine 0.2 L Est GFR ( Amer) > 60.0 Est GFR (Non-Af Amer) > 60.0 BUN/Creatinine Ratio 30.0 Glucose 90 Calcium 8.0 L Magnesium Iron TIBC Iron Saturation Unsaturated IBC Ferritin Total Bilirubin AST ALT Alkaline Phosphatase Ammonia B-Natriuretic Peptide Total Protein Albumin Globulin Albumin/Globulin Ratio Vitamin B12 Folic Acid TSH Vancomycin Trough Blood Type Antibody Screen Crossmatch Disposition: Other Care w/in this hosp Home Medications: Home Medication Medication Instructions Recorded Type Ascorbic Acid [Vitamin C] 500 mg PO DAILY 06/06/17 History Baclofen [Lioresal*] 10 mg PO TID 06/06/17 History Bisacodyl [Dulcolax 5 Mg Ec Tab] 10 mg PO DAILY 06/06/17 History Cholecalciferol (Vit D3) [Vitamin 1,000 iu PO DAILY 06/06/17 History D3] Dexamethasone 2 mg PO BID 06/06/17 History Levetiracetam [Keppra] 1,000 mg PO BID 06/06/17 History Lidocaine 5% Patch [Lidoderm 5% 1 patch TP BID 06/06/17 History Patch] Memantine [Namenda] 5 mg PO DAILY 06/06/17 History Memantine [Namenda] 10 mg PO DAILY 06/06/17 History Multivitamin-Min/Iron/FA/Vit K 1 each PO DAILY 06/06/17 History [Multi-Day Plus Minerals Tablet] Oxycodone HCl [Oxycontin] 20 mg PO TID 06/06/17 History Pantoprazole [Protonix] 40 mg PO QAM 06/06/17 History Zinc Sulfate 220 mg PO DAILY 06/06/17 History Inpatient Medications: Current Medications Acetaminophen (Tylenol) 650 mg PO Q4H PRN PRN Reason: Pain Or Fever above 101 Stop: 08/05/17 21:50 Last Admin: 06/07/17 21:07 Dose: 650 mg Albuterol Sulfate (Albuterol 2.5mg/3ml Neb Ud) 2.5 mg HHN Q2HRT PRN PRN Reason: Shortness of Breath or Wheeze Stop: 08/05/17 21:50 Last Admin: 06/10/17 07:50 Dose: 2.5 mg Ascorbic Acid (Vitamin C) 500 mg PO DAILY [facility] Stop: 08/06/17 08:59 Last Admin: 06/11/17 09:04 Dose: 500 mg Baclofen (Lioresal) 10 mg PO TID [facility] Stop: 08/06/17 08:59 Last Admin: 06/11/17 09:05 Dose: 10 mg Bisacodyl (Dulcolax 5 Mg Ec Tab) 10 mg PO DAILY [facility] Stop: 08/06/17 08:59 Last Admin: 06/11/17 09:03 Dose: 10 mg Cholecalciferol (Vitamin D3) 1,000 iu PO DAILY [facility] Stop: 08/06/17 08:59 Last Admin: 06/11/17 09:03 Dose: 1,000 iu Dexamethasone (Decadron) 2 mg PO BID [facility] Stop: 08/06/17 08:59 Last Admin: 06/11/17 09:05 Dose: 2 mg Enoxaparin Sodium (Lovenox) 40 mg SUBQ DAILY [facility] Stop: 08/07/17 08:59 Last Admin: 06/11/17 09:06 Dose: 40 mg Hydromorphone HCl (Dilaudid) 2 mg IVP Q4HR PRN PRN Reason: Pain (Severe) Stop: 08/05/17 22:35 Last Admin: 06/11/17 08:06 Dose: 2 mg Piperacillin Sod/Tazobactam (Sod 4.5 gm/ Sodium Chloride) 100 mls @ 100 mls/hr IV Q8HR [facility] Stop: 08/06/17 04:59 Last Admin: 06/11/17 04:17 Dose: 100 mls/hr Vancomycin HCl 1.25 gm/ Sodium (Chloride) 250 mls @ 165 mls/hr IV Q8H [facility] Stop: 08/07/17 15:59 Last Admin: 06/11/17 08:58 Dose: 165 mls/hr Dextrose/Sodium Chloride (D5-0.9%Ns) 1,000 mls @ 75 mls/hr IV .[id number] [facility] Stop: 08/05/17 21:59 Last Admin: 06/10/17 23:22 Dose: 75 mls/hr Ipratropium [place] (Atrovent Neb 0.5mg/2.5ml) 0.5 mg IH Q2HRT PRN PRN Reason: Shortness of Breath or Wheeze Stop: 08/05/17 21:50 Last Admin: 06/10/17 07:50 Dose: 0.5 mg Levetiracetam (Keppra) 1,000 mg PO BID [facility] Stop: 08/06/17 08:59 Last Admin: 06/11/17 09:05 Dose: 1,000 mg Lidocaine (Lidoderm 5% Patch) 1 patch TD DAILY [facility] Stop: 08/06/17 08:59 Last Admin: 06/11/17 09:02 Dose: 1 patch Memantine (Namenda) 10 mg PO DAILY [facility] Stop: 08/06/17 08:59 Last Admin: 06/11/17 09:05 Dose: 10 mg Memantine (Namenda) 5 mg PO 1700 [facility] Stop: 08/06/17 16:59 Last Admin: 06/10/17 17:24 Dose: 5 mg Miscellaneous (Vancomycin Iv Per Pharmacy) 1 ea MC PRN PRN PRN Reason: DOSING AND MONITORING Stop: 08/06/17 14:03 Morphine Sulfate (Morphine) 2 mg IVP Q4H PRN PRN Reason: Pain (Moderate) Stop: 08/05/17 21:50 Last Admin: 06/11/17 10:03 Dose: 2 mg Mupirocin (Bactroban Oint) 1 appl NS BID [facility] Stop: 06/13/17 09:01 Last Admin: 06/11/17 09:02 Dose: 1 appl Ondansetron HCl (Zofran) 4 mg IV Q8H PRN PRN Reason: Nausea / Vomiting Stop: 08/05/17 21:50 Oxycodone HCl (Oxycodone Ir) 20 mg PO TID [facility] Stop: 08/06/17 08:59 Last Admin: 06/10/17 22:21 Dose: 20 mg Pantoprazole Sodium (Protonix) 40 mg PO QAM [facility] Stop: 08/06/17 08:59 Last Admin: 06/11/17 10:07 Dose: 40 mg Zinc Sulfate (Zinc Sulfate) 220 mg PO DAILY [facility] Stop: 08/06/17 08:59 Last Admin: 06/11/17 09:04 Dose: 220 mg Zolpidem Tartrate (Ambien) 10 mg PO HS PRN PRN Reason: Insomnia Stop: 08/05/17 21:50 Consults and Follow-Up: Broderick Luna [Primary Care Provider] -
[2017-06-11] MEDS ORDERED: HYDROmorphone 2 mg/mL 1mL Vial IVP ONE (11:39)
[2017-06-11] MEDS ORDERED: Morphine Sulfate 2 mg/mL 1mL Syr IVP ONE (13:27)
[2017-06-11] MEDS ORDERED: Diltiazem 5 mg/mL 5mL Vial IVP ONE (14:53)
[2017-06-11] MEDS: oxyCODONE 5 mg IR Tab PO SCH ×3 (15:20→22:20)
--- NOTE | 2017-06-11 15:26 | General Progress Note ---
Subjective - Review of Systems Service Date: 06/11/17 Subjective: not in pain Objective - Results Result Diagrams: 06/11/17 06:06 06/11/17 06:06 Recent Labs: Laboratory Last Values WBC 5.4 Th/cmm (4.8-10.8) 06/11/17 06:06 RBC 2.93 Mil/cmm (3.80-5.10) L 06/11/17 06:06 Hgb 9.0 gm/dL (11.7-15.5) L 06/11/17 06:06 Hct 26.5 % (35.0-45.0) L 06/11/17 06:06 MCV 90.6 fl (81-100) 06/11/17 06:06 MCH 30.7 pg (27.0-31.0) 06/11/17 06:06 MCHC Differential 33.9 pg (28.0-36.0) 06/11/17 06:06 RDW 19.5 % (11.5-20.0) 06/11/17 06:06 Plt Count 168 Th/cmm (150-400) 06/11/17 06:06 MPV 7.5 fl 06/11/17 06:06 Neutrophils % 77.0 % (40.0-80.0) 06/11/17 06:06 Band Neutrophils % 4 % (0-10) 06/08/17 11:56 Lymphocytes % 17.3 % (20.0-50.0) L 06/11/17 06:06 Monocytes % 4.8 % (2.0-10.0) 06/11/17 06:06 Eosinophils % 0.4 % (0.0-5.0) 06/11/17 06:06 Basophils % 0.5 % (0.0-2.0) 06/11/17 06:06 Neutrophils (Manual) 71 % (40-80) 06/08/17 11:56 Lymphocytes 18 % (20-50) L 06/08/17 11:56 Monocytes 6 % (2-10) 06/08/17 11:56 Basophils 1 % (0-3) 06/08/17 11:56 Nucleated RBCs 1.0 % (0-0) H 06/06/17 18:23 Platelet Estimate ADEQUATE (NORMAL) 06/08/17 11:56 Anisocytosis 1+ 06/08/17 11:56 RBC Morph Micro Appear ABNORMAL (NORMAL) 06/08/17 11:56 PT 10.6 SECONDS (9.5-11.5) 06/06/17 18:23 INR 1.02 (0.5-1.4) 06/06/17 18:23 PTT (Actin FS) 24.7 SECONDS (26.0-38.0) L 06/06/17 18:23 Sodium 137 mEq/L (136-145) 06/11/17 06:06 Potassium 3.5 mEq/L (3.5-5.1) 06/11/17 06:06 Chloride 107 mEq/L (98-107) 06/11/17 06:06 Carbon Dioxide 20.5 mEq/L (21.0-31.0) L 06/11/17 06:06 Anion Gap 13.0 (7.0-16.0) 06/11/17 06:06 BUN 6 mg/dL (7-25) L 06/11/17 06:06 Creatinine 0.2 mg/dL (0.6-1.2) L 06/11/17 06:06 Est GFR ( Amer) > 60.0 ml/min (>90) 06/11/17 06:06 Est GFR (Non-Af Amer) > 60.0 ml/min 06/11/17 06:06 BUN/Creatinine Ratio 30.0 06/11/17 06:06 Glucose 90 mg/dL (70-105) 06/11/17 06:06 Calcium 8.0 mg/dL (8.6-10.3) L 06/11/17 06:06 Magnesium 2.0 mg/dL (1.9-2.7) 06/10/17 04:55 Iron 70 ug/dL (27-159) 06/08/17 07:13 TIBC 161 ug/dL (250-450) L 06/08/17 07:13 Iron Saturation 43 % (15-55) 06/08/17 07:13 Unsaturated IBC 91 ug/dL (131-425) L 06/08/17 07:13 Ferritin 2330 ng/mL (15-150) H 06/08/17 07:13 Total Bilirubin 0.5 mg/dL (0.3-1.0) 06/10/17 04:55 AST 67 U/L (13-39) H 06/10/17 04:55 ALT 86 U/L (7-52) H 06/10/17 04:55 Alkaline Phosphatase 195 U/L (34-104) H 06/10/17 04:55 Ammonia 78 umol/L (16-53) H 06/07/17 07:15 B-Natriuretic Peptide 11.1 pg/mL (5.0-100.0) 06/07/17 07:15 Total Protein 5.2 gm/dL (6.0-8.3) L 06/10/17 04:55 Albumin 2.6 gm/dL (3.7-5.3) L 06/10/17 04:55 Globulin 2.6 gm/dL 06/10/17 04:55 Albumin/Globulin Ratio 1.0 (1.0-1.8) 06/10/17 04:55 Vitamin B12 873 pg/mL (211-946) 06/07/17 07:15 Folic Acid >20.0 ng/mL (>3.0) 06/07/17 07:15 TSH 0.64 uIU/ml (0.34-5.60) 06/07/17 07:15 Urine Source [place] 06/06/17 20:20 Urine Color YELLOW 06/06/17 20:20 Urine Clarity TURBID (CLEAR) H 06/06/17 20:20 Urine pH 7.0 06/06/17 20:20 Ur Specific [place] 1.015 (1.005-1.030) 06/06/17 20:20 Urine Protein TRACE mg/dL (NEGATIVE) 06/06/17 20:20 Urine Glucose (UA) NEGATIVE mg/dL (NEGATIVE) 06/06/17 20:20 Urine Ketones NEGATIVE mg/dL (NEGATIVE) 06/06/17 20:20 Urine Blood SMALL (NEGATIVE) H 06/06/17 20:20 Urine Nitrate POSITIVE (NEGATIVE) H 06/06/17 20:20 Urine Bilirubin NEGATIVE (NEGATIVE) 06/06/17 20:20 Urine Urobilinogen >=8.0 E.U./dL (0.2 - 1.0) H 06/06/17 20:20 Ur Leukocyte Esterase TRACE (NEGATIVE) H 06/06/17 20:20 Urine RBC 5-10 /hpf (0-5) H 06/06/17 20:20 Urine WBC 6-10 /hpf (0-5) H 06/06/17 20:20 Ur Epithelial Cells MANY /lpf (FEW) 06/06/17 20:20 Amorphous Sediment MANY URATES (NONE SEEN) 06/06/17 20:20 Urine Bacteria MANY /hpf (NONE SEEN) 06/06/17 20:20 Urine Mucus FEW /lpf (FEW) 06/06/17 20:20 Vancomycin Trough 18.1 ug/mL (10-20) 06/09/17 07:53 Blood Type AB POSITIVE 06/07/17 10:25 Antibody Screen NEGATIVE 06/07/17 10:25 Crossmatch See Detail 06/07/17 10:25 - Physical Exam Vitals and I&O: Vital Signs Temp 98.3 F 06/11/17 12:05 Pulse 144 06/11/17 15:11 Resp 19 06/11/17 12:05 BP 126/83 06/11/17 12:05 Pulse Ox 96 06/11/17 12:05 Intake & Output 06/10/17 06/11/17 06/11/17 18:59 06:59 18:59 Intake Total 1000 1700 Output Total 1300 Balance -300 1700 Weight (lbs) 116.12 kg 116.12 kg Intake: Intake, IV Amount 600 1350 D5-0.9%Ns 1,000 ml @ 75 1000 mls/hr IV .[id number] [facility] Rx #:[id number] Piperacillin Sodium/ 100 100 Tazobact 4.5 gm In Sodium Chloride 0.9% 100 ml @ 100 mls/hr IV Q8HR [facility] Rx #:[id number] Vancomycin HCl 1.25 gm In 500 250 Sodium Chloride 0.9% 250 ml @ 165 mls/hr IV Q8H [facility] Rx#:[id number] Oral 400 350 Output: Urine 1300 Other: # Bowel Movements 0 Active Medications: Current Medications Ascorbic Acid (Vitamin C) 500 mg PO DAILY [facility] Stop: 08/06/17 08:59 Last Admin: 06/11/17 09:04 Dose: 500 mg Baclofen (Lioresal) 10 mg PO TID [facility] Stop: 08/06/17 08:59 Last Admin: 06/11/17 15:20 Dose: 10 mg Bisacodyl (Dulcolax 5 Mg Ec Tab) 10 mg PO DAILY [facility] Stop: 08/06/17 08:59 Last Admin: 06/11/17 09:03 Dose: 10 mg Cholecalciferol (Vitamin D3) 1,000 iu PO DAILY [facility] Stop: 08/06/17 08:59 Last Admin: 06/11/17 09:03 Dose: 1,000 iu Dexamethasone (Decadron) 2 mg PO BID [facility] Stop: 08/06/17 08:59 Last Admin: 06/11/17 09:05 Dose: 2 mg Levetiracetam (Keppra) 1,000 mg PO BID [facility] Stop: 08/06/17 08:59 Last Admin: 06/11/17 09:05 Dose: 1,000 mg Lidocaine (Lidoderm 5% Patch) 1 patch TD DAILY [facility] Stop: 08/06/17 08:59 Last Admin: 06/11/17 09:02 Dose: 1 patch Memantine (Namenda) 10 mg PO DAILY [facility] Stop: 08/06/17 08:59 Last Admin: 06/11/17 09:05 Dose: 10 mg Memantine (Namenda) 5 mg PO 1700 [facility] Stop: 08/06/17 16:59 Last Admin: 06/10/17 17:24 Dose: 5 mg Oxycodone HCl (Oxycodone Ir) 20 mg PO TID [facility] Stop: 08/06/17 08:59 Last Admin: 06/11/17 15:20 Dose: Not Given Pantoprazole Sodium (Protonix) 20 mg PO QAM [facility] Stop: 08/11/17 08:59 Zinc Sulfate (Zinc Sulfate) 220 mg PO DAILY [facility] Stop: 08/06/17 08:59 Last Admin: 06/11/17 09:04 Dose: 220 mg Neurological: Other (pareplegic) - Procedures Procedures: Procedures Procedure Code Date BLOOD TRANSFUSION SERVICE 70330 06/06/17 TRANSFUSE NONAUT RED BLOOD CELLS IN PERIPH VEIN, PERC 89079G9 06/06/17 Assessment/Plan - Assessment Assessment: * METASTATIC BREAST CANCER\ * PARAPLEGIC * S/P SPINAL SURGERY FOR DECOMPRESSION * S/P CRANIOTOMY * SEVER ANEMIA OF MALIGNANCY TRANSFUSE ONE MORE UNIT OF BLOOD CONTINUE PROPH LOVENOX hgb slowly falling, monitor Nutritional Asmnt/Malnutr-PDOC - Dietary Evaluation Malnutrition Findings (Please click <Entered> for more info): Nutritional Asmnt/Malnutrition Start: 06/07/17 16: 17 Text: Status: Complete Freq: Document 06/07/17 16:19 GSUN (Rec: 06/07/17 16:31 GSUN [email or web address]) Nutritional Asmnt/Malnutrition Patient General Information Nutritional Screening High Risk Screening Diagnosis ER: metastatic breast carcinoma, sepsis Pertinent Medical Hx/Surgical Hx ER: 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 Pt was pleasant and alert. Pt stated UBW 215lb, questionable EMR weight 250 as pt has equipment and heavy blankets and belongings on bedscale. Pt does appear obese. Pt stated usually good appetite, no changes to taste buds, no difficulties eating. RD worked through menu w pt, extra meal tray provided for caregiver. Pt awaiting blood transfusion at this time, denied nutritional concerns. 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 Problem Problem Icnreased kcal and prot needs related to Etiology hypermetabolic state, skin integrity aeb Signs/Symptoms: sepsis, metastatic cancer, buttock pressure ulcer Malnutrition Related to Morbid Obesity Malnutrition related to morbid obesity BMI> or equal to 40 Query Text:(Any 1 Criteria met) Malnutrition related to morbid obesity Yes Intervention/Recommendation Comments 1. Continue with current diet order. 2. Recommend 1 packet Arginaid . Expected Outcomes/Goals Expected Outcomes/Goals 1. PO intake to meet 100% of estimated nutritional needs.
[2017-06-11] MEDS ORDERED: HYDROmorphone 2 mg/mL 1mL Vial IVP PRN (19:40)
[2017-06-11] MEDS ORDERED: HYDROmorphone 1 mg/mL 1mL Syr IVP PRN (19:52)
[2017-06-11] MEDS: HYDROmorphone 1 mg/mL 1mL Syr IVP PRN (23:05)
[2017-06-12] MEDS: HYDROmorphone 1 mg/mL 1mL Syr IVP PRN ×3 (01:53→08:05)
--- NOTE | 2017-06-12 04:44 | Discharge Summary ---
DATE OF DISCHARGE: 06/11/[address] Broderick Luna. ADMITTING DIAGNOSES: Fever; urinary tract infection; metastatic breast cancer; ____; anemia, status post transfusion; debilitation; bedbound; and chronic pain syndrome. HISTORY OF PRESENT ILLNESS: A 51-year-old unfortunate [place] female with a history of breast cancer with bone metastasis status post radiation therapy which she just finished recently. The patient was diagnosed with UTI, on Levaquin, but has continued to spike. The patient with multiple bone metastasis with multiple bone surgery. The patient's hemoglobin was 6.8 at the nursing facility. The patient was admitted for further management. PHYSICAL EXAMINATION: GENERAL: The patient is well developed, well nourished, in no acute distress. VITAL SIGNS: Stable. HEENT: Normocephalic, atraumatic. NECK: Supple. No mass. LUNGS: Clear bilaterally. CARDIOVASCULAR: Regular rate and rhythm. ABDOMEN: Soft, nontender. HOSPITAL COURSE: During the hospital stay, the patient was admitted to the med/surg unit. The patient had a consultation with Dr. Hall. The patient was transfused with [address] Hall's plan of care for this patient was continued with prophylaxis Lovenox. The patient's H and H did not drop. For this reason, the patient is stable for discharge. CONDITION UPON DISCHARGE: Fair. DISPOSITION: The patient is going back to [facility]. JOB# [id number]
[2017-06-12] MEDS: Multivitamin w/ Minerals Tab PO SCH (08:07)
[2017-06-12] MEDS ORDERED: Pantoprazole 40 mg/Packet PO SCH (09:00)
[2017-06-12] MEDS: oxyCODONE 5 mg IR Tab PO SCH (09:14)
[2017-06-12] MEDS: Lidocaine 5% Patch TD SCH (09:16)
[2017-06-12] MEDS: Venelex 60gm Tube TP SCH (09:32)
[2017-06-12] MEDS ORDERED: Diltiazem 5 mg/mL 5mL Vial IVP PRN (09:49)
[2017-06-12] MEDS ORDERED: HYDROmorphone 1 mg/mL 1mL Syr IVP ONE (10:30)
--- NOTE | 2017-06-12 11:14 | General Progress Note ---
Subjective - Review of Systems Service Date: 06/12/17 Events since last encounter: pain is fairly controlled Subjective: not in pain Objective - Results Result Diagrams: 06/11/17 06:06 06/11/17 06:06 Recent Labs: Laboratory Last Values WBC 5.4 Th/cmm (4.8-10.8) 06/11/17 06:06 RBC 2.93 Mil/cmm (3.80-5.10) L 06/11/17 06:06 Hgb 9.0 gm/dL (11.7-15.5) L 06/11/17 06:06 Hct 26.5 % (35.0-45.0) L 06/11/17 06:06 MCV 90.6 fl (81-100) 06/11/17 06:06 MCH 30.7 pg (27.0-31.0) 06/11/17 06:06 MCHC Differential 33.9 pg (28.0-36.0) 06/11/17 06:06 RDW 19.5 % (11.5-20.0) 06/11/17 06:06 Plt Count 168 Th/cmm (150-400) 06/11/17 06:06 MPV 7.5 fl 06/11/17 06:06 Neutrophils % 77.0 % (40.0-80.0) 06/11/17 06:06 Band Neutrophils % 4 % (0-10) 06/08/17 11:56 Lymphocytes % 17.3 % (20.0-50.0) L 06/11/17 06:06 Monocytes % 4.8 % (2.0-10.0) 06/11/17 06:06 Eosinophils % 0.4 % (0.0-5.0) 06/11/17 06:06 Basophils % 0.5 % (0.0-2.0) 06/11/17 06:06 Neutrophils (Manual) 71 % (40-80) 06/08/17 11:56 Lymphocytes 18 % (20-50) L 06/08/17 11:56 Monocytes 6 % (2-10) 06/08/17 11:56 Basophils 1 % (0-3) 06/08/17 11:56 Nucleated RBCs 1.0 % (0-0) H 06/06/17 18:23 Platelet Estimate ADEQUATE (NORMAL) 06/08/17 11:56 Anisocytosis 1+ 06/08/17 11:56 RBC Morph Micro Appear ABNORMAL (NORMAL) 06/08/17 11:56 PT 10.6 SECONDS (9.5-11.5) 06/06/17 18:23 INR 1.02 (0.5-1.4) 06/06/17 18:23 PTT (Actin FS) 24.7 SECONDS (26.0-38.0) L 06/06/17 18:23 Sodium 137 mEq/L (136-145) 06/11/17 06:06 Potassium 3.5 mEq/L (3.5-5.1) 06/11/17 06:06 Chloride 107 mEq/L (98-107) 06/11/17 06:06 Carbon Dioxide 20.5 mEq/L (21.0-31.0) L 06/11/17 06:06 Anion Gap 13.0 (7.0-16.0) 06/11/17 06:06 BUN 6 mg/dL (7-25) L 06/11/17 06:06 Creatinine 0.2 mg/dL (0.6-1.2) L 06/11/17 06:06 Est GFR ( Amer) > 60.0 ml/min (>90) 06/11/17 06:06 Est GFR (Non-Af Amer) > 60.0 ml/min 06/11/17 06:06 BUN/Creatinine Ratio 30.0 06/11/17 06:06 Glucose 90 mg/dL (70-105) 06/11/17 06:06 Calcium 8.0 mg/dL (8.6-10.3) L 06/11/17 06:06 Magnesium 2.0 mg/dL (1.9-2.7) 06/10/17 04:55 Iron 70 ug/dL (27-159) 06/08/17 07:13 TIBC 161 ug/dL (250-450) L 06/08/17 07:13 Iron Saturation 43 % (15-55) 06/08/17 07:13 Unsaturated IBC 91 ug/dL (131-425) L 06/08/17 07:13 Ferritin 2330 ng/mL (15-150) H 06/08/17 07:13 Total Bilirubin 0.5 mg/dL (0.3-1.0) 06/10/17 04:55 AST 67 U/L (13-39) H 06/10/17 04:55 ALT 86 U/L (7-52) H 06/10/17 04:55 Alkaline Phosphatase 195 U/L (34-104) H 06/10/17 04:55 Ammonia 78 umol/L (16-53) H 06/07/17 07:15 B-Natriuretic Peptide 11.1 pg/mL (5.0-100.0) 06/07/17 07:15 Total Protein 5.2 gm/dL (6.0-8.3) L 06/10/17 04:55 Albumin 2.6 gm/dL (3.7-5.3) L 06/10/17 04:55 Globulin 2.6 gm/dL 06/10/17 04:55 Albumin/Globulin Ratio 1.0 (1.0-1.8) 06/10/17 04:55 Vitamin B12 873 pg/mL (211-946) 06/07/17 07:15 Folic Acid >20.0 ng/mL (>3.0) 06/07/17 07:15 TSH 0.64 uIU/ml (0.34-5.60) 06/07/17 07:15 Urine Source [place] 06/06/17 20:20 Urine Color YELLOW 06/06/17 20:20 Urine Clarity TURBID (CLEAR) H 06/06/17 20:20 Urine pH 7.0 06/06/17 20:20 Ur Specific [place] 1.015 (1.005-1.030) 06/06/17 20:20 Urine Protein TRACE mg/dL (NEGATIVE) 06/06/17 20:20 Urine Glucose (UA) NEGATIVE mg/dL (NEGATIVE) 06/06/17 20:20 Urine Ketones NEGATIVE mg/dL (NEGATIVE) 06/06/17 20:20 Urine Blood SMALL (NEGATIVE) H 06/06/17 20:20 Urine Nitrate POSITIVE (NEGATIVE) H 06/06/17 20:20 Urine Bilirubin NEGATIVE (NEGATIVE) 06/06/17 20:20 Urine Urobilinogen >=8.0 E.U./dL (0.2 - 1.0) H 06/06/17 20:20 Ur Leukocyte Esterase TRACE (NEGATIVE) H 06/06/17 20:20 Urine RBC 5-10 /hpf (0-5) H 06/06/17 20:20 Urine WBC 6-10 /hpf (0-5) H 06/06/17 20:20 Ur Epithelial Cells MANY /lpf (FEW) 06/06/17 20:20 Amorphous Sediment MANY URATES (NONE SEEN) 06/06/17 20:20 Urine Bacteria MANY /hpf (NONE SEEN) 06/06/17 20:20 Urine Mucus FEW /lpf (FEW) 06/06/17 20:20 Vancomycin Trough 18.1 ug/mL (10-20) 06/09/17 07:53 Blood Type AB POSITIVE 06/07/17 10:25 Antibody Screen NEGATIVE 06/07/17 10:25 Crossmatch See Detail 06/07/17 10:25 - Physical Exam Vitals and I&O: Vital Signs Temp 98.2 F 06/12/17 09:39 Pulse 115 06/12/17 09:39 Resp 20 06/12/17 09:39 BP 148/74 06/12/17 09:39 Pulse Ox 96 06/12/17 09:39 Intake & Output 06/11/17 06/12/17 06/12/17 18:59 06:59 18:59 Intake Total 1250 Output Total 1900 Balance -650 Weight (lbs) 118.841 kg 118.841 kg Intake: Intake, IV Amount 100 Piperacillin Sodium/ 100 Tazobact 4.5 gm In Sodium Chloride 0.9% 100 ml @ 100 mls/hr IV Q8HR [facility] Rx #:[id number] Oral 1150 Output: Urine 1900 Urine/Stool Mix 0 Other: # Bowel Movements 1 Stool Characteristics Formed Brown Neurological: Other (pareplegic) - Procedures Procedures: Procedures Procedure Code Date BLOOD TRANSFUSION SERVICE 37883 06/06/17 TRANSFUSE NONAUT RED BLOOD CELLS IN PERIPH VEIN, PERC 61918K1 06/06/17 Assessment/Plan - Assessment Assessment: * METASTATIC BREAST CANCER\ * PARAPLEGIC * S/P SPINAL SURGERY FOR DECOMPRESSION * S/P CRANIOTOMY * SEVER ANEMIA OF MALIGNANCY CONTINUE PROPH LOVENOX to continue care under primary oncologist Nutritional Asmnt/Malnutr-PDOC - Dietary Evaluation Malnutrition Findings (Please click <Entered> for more info): Nutritional Asmnt/Malnutrition Start: 06/07/17 16: 17 Text: Status: Complete Freq: Document 06/07/17 16:19 GSUN (Rec: 06/07/17 16:31 GSUN [id number]) Nutritional Asmnt/Malnutrition Patient General Information Nutritional Screening High Risk Screening Diagnosis ER: metastatic breast carcinoma, sepsis Pertinent Medical Hx/Surgical Hx ER: 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 Pt was pleasant and alert. Pt stated UBW 215lb, questionable EMR weight 250 as pt has equipment and heavy blankets and belongings on bedscale. Pt does appear obese. Pt stated usually good appetite, no changes to taste buds, no difficulties eating. RD worked through menu w pt, extra meal tray provided for caregiver. Pt awaiting blood transfusion at this time, denied nutritional concerns. 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 Problem Problem Icnreased kcal and prot needs related to Etiology hypermetabolic state, skin integrity aeb Signs/Symptoms: sepsis, metastatic cancer, buttock pressure ulcer Malnutrition Related to Morbid Obesity Malnutrition related to morbid obesity BMI> or equal to 40 Query Text:(Any 1 Criteria met) Malnutrition related to morbid obesity Yes Intervention/Recommendation Comments 1. Continue with current diet order. 2. Recommend 1 packet Arginaid . Expected Outcomes/Goals Expected Outcomes/Goals 1. PO intake to meet 100% of estimated nutritional needs.
== END 2017-06-12 10:40 | disposition home or self-care (01) | DRG 871 ==
LOC: ER 17:41 → TELE 21:29
PROVIDERS: ADMIT Internal Medicine; ATTEND Internal Medicine
PROC: 30233N1 Transfusion of Nonautologous Red Blood Cells into Peripheral Vein, Percutaneous Approach (ICD-10-PCS; principal; 2017-06-07)
DX: A41.9 Sepsis, unspecified organism (principal); E43 Unspecified severe protein-calorie malnutrition; C79.51 Secondary malignant neoplasm of bone; C79.31 Secondary malignant neoplasm of brain; G82.20 Paraplegia, unspecified; Z68.42 Body mass index [BMI] 45.0-49.9, adult; N39.0 Urinary tract infection, site not specified; C50.919 Malignant neoplasm of unspecified site of unspecified female breast; G89.4 Chronic pain syndrome; E66.9 Obesity, unspecified; D63.0 Anemia in neoplastic disease; E83.42 Hypomagnesemia; Z96.641 Presence of right artificial hip joint; Z90.12 Acquired absence of left breast and nipple; Z96.651 Presence of right artificial knee joint; Z79.899 Other long term (current) drug therapy; Z74.01 Bed confinement status; Z92.3 Personal history of irradiation
CPT/HCPCS: 36415-UA; 71010-TC; 80048-TC; 80053-TC; 80202-TC; 81001-TC; 82140-TC; 82607-90; 82728-90; 82746-90; 83540-90; 83550-90; 83735-TC; 83880-TC; 84443-TC; 85007-TC; 85025-TC; 85027-TC; 85610-TC; 85730-TC; 86850-TC; 86900-TC; 86901-TC; 86922-TC; 90779; 94640; 94760; 96375; J1170; J1650; J2270; J2405; J2543; J3370; J3475; J7030; J7040; J7042; J7613; J8540; P9016; Z7610